=== PATIENT | male | born 1935 | race Caucasian/White ===

== ENCOUNTER → 2018-07-24 17:12 | Outpatient (CLI) | payer MEDICARE, BC, SELFPAY ==
[2018-07-24 18:09] LABS: Bacteria Urine None Seen; WBC Urine None Seen (0-5/HPF)
[2018-07-24 18:21] LABS: Appearance Urine UA CLEAR; Bilirubin Urine UA NEGATIVE (NEGATIVE); Color Urine UA YELLOW; Glucose Urine UA NEGATIVE (Normal); Ketones Urine UA NEGATIVE (NEGATIVE); Leukocyte Esterase Urine UA NEGATIVE (NEGATIVE); Nitrite Urine UA NEGATIVE (Negative); Occult Blood Urine UA 1+ (Negative); Protein Urine UA NEGATIVE (Negative); Urobilinogen Urine UA 0.2 E.U./dL (0.2); pH Urine UA 6.5 (4.5-8.0)
[2018-07-24 18:30] LABS: Culture Indicated Urine Cult Not Indicated; RBC Urine 5-10/HPF (0-5/HPF)
== END ==
PROVIDERS: Family Provider Family Medicine; PCP Family Medicine; Visit Provider Family Medicine
DX: R35.0 Frequency of micturition (principal)
CPT/HCPCS: 81001

== ENCOUNTER → 2018-10-01 15:48 | Outpatient (CLI) | payer MEDICARE, BC, SELFPAY ==
[2018-10-01 16:32] LABS: Alanine Aminotransferase 32 IU/L (21-72); Albumin 4.1 g/dL (3.5-5.0); Albumin Globulin Ratio 1.5 (1.0-2.8); Alkaline Phosphatase 75 U/L (38-126); Aspartate Aminotransferase 26 IU/L (17-59); Bilirubin Total 0.5 mg/dL (0.2-1.3); Blood Urea Nitrogen 27 mg/dL (9-20); Calcium 9.7 mg/dL (8.4-10.2); Carbon Dioxide 26 mmol/L (22-32); Chloride 104 mmol/L (98-107); Cholesterol 157 mg/dL (140-199); Estimated Glomerular Filt Rate > 60.0 mL/min (>60); Globulin 2.7 g/dL (1.7-4.1); Glucose 210 mg/dL (80-110); HDL Cholesterol 84 mg/dL (40-60); HEMOLYSIS < 15 (0-50); LDL Cholesterol Calculated 55 mg/dL (<100); Potassium 3.4 mmol/L (3.4-5.1); Sodium 140 mmol/L (137-145); Total Protein 6.8 g/dL (6.3-8.2); Triglycerides 89 mg/dL (35-150)
[2018-10-01 17:13] LABS: Prostate Specific Antigen Scrn < 0.064 ng/mL (0.1-4.0)
== END ==
PROVIDERS: PCP Family Medicine; Visit Provider Family Medicine
DX: I10 Essential (primary) hypertension (principal); E78.5 Hyperlipidemia, unspecified; Z85.46 Personal history of malignant neoplasm of prostate; Z12.5 Encounter for screening for malignant neoplasm of prostate
CPT/HCPCS: 36415; 80053; 80061; G0103

== ENCOUNTER → 2018-10-02 14:02 | Outpatient (CLI) | payer MEDICARE, BC, SELFPAY ==
[2018-10-02 15:30] LABS: Hemoglobin A1C% w Est Avg Glu 5.5 % (4.0-6.0)
== END ==
PROVIDERS: PCP Family Medicine; Visit Provider Family Medicine
DX: R73.09 Other abnormal glucose (principal)
CPT/HCPCS: 36415; 83036

== ENCOUNTER → 2018-10-08 08:19 | Outpatient (CLI) | payer MEDICARE, BC, SELFPAY | PROVIDERS: PCP Family Medicine; Visit Provider Family Medicine | DX: R73.09 Other abnormal glucose (principal) ==

== ENCOUNTER → 2018-10-09 07:59 | Outpatient (CLI) | payer MEDICARE, BC, SELFPAY ==
[2018-10-09 09:53] LABS: Glucose Fasting 84 mg/dL (80-110)
[2018-10-09 10:00] LABS: Glucose 1 Hour 154 mg/dL (70-170)
[2018-10-09 10:17] LABS: Glucose Tol Interpretation INTERPRETATION
[2018-10-09 10:51] LABS: Glucose 2 Hour 129 mg/dL (70-140)
[2018-10-13 14:57] LABS: Insulin Level Total 6.1 uIU/mL (2.0-19.6)
== END ==
PROVIDERS: PCP Family Medicine; Visit Provider Family Medicine
DX: R73.09 Other abnormal glucose (principal)
CPT/HCPCS: 36415; 82951; 82952; 83525

== ENCOUNTER → 2019-02-16 10:22 | Outpatient (CLI) | payer MEDICARE, BC, SELFPAY ==
--- NOTE | 2019-02-16 10:24 | DI.RAD.S_ITS ---
PROCEDURE: FL BARIUM SWALLOW W SPEECH INDICATIONS: Lump in throat TECHNIQUE: Examination was conducted in conjunction with speech pathology per standard protocol. In the lateral projection, filming was performed of the patient swallowing. AP projection filming may also be performed with patient swallowing. COMPARISON: None. FINDINGS: Function: The oral preparatory phase appears normal, with proper containment. The subsequent oral propulsive phase, pharyngeal phase, and esophageal phase of swallowing also appear normal with all proffered substances. No laryngotracheal penetration or aspiration. No pathologic vallecular pooling. Morphology: No cricopharyngeal bar is identified. No cervical esophageal webs. No Zenker's diverticulum. No strictures. IMPRESSION: No evidence of aspiration. Dictated by: Adam Worrell M.D. on 02/16/2019 at 12:25 Approved by: Adam Worrell M.D. on 02/16/2019 at 12:25
--- NOTE | 2019-02-17 15:47 | ST.SWALLOW ---
Care Team Visit Care Team Role Provider Type Cally Alejandre DO Attending Provider Physician Primary Care Provider Specialty: Family Practice Address: [address] [place] [address], [id number] Email: [email or web address] Modified Barium Swallow Study [employer] Modified Barium Swallow Study Start: 02/17/19 15:25 Freq: Status: Active Protocol: Document 02/17/19 15:25 TLC (Rec: 02/17/19 15:47 TLC [id number]) Modified Barium Swallow Study Total Time Visit Start Time 11:30 Visit Stop Time 12:00 Total Visit Minutes 30 Referral Reason for Referral Sensation of lump in throat when swallowing Patient Information Patient History Mr. Garcia reports new onset (1-2 months) of feeling a lump in his throat when he swallows. He denies odynophagia or dysphagia, but says he can feel his food/ drinks go around it. He denies reflux. Patient Positioning Position View Lat-A/P Imaging Lateral View Textures Administered Trials Presented Thin Liquid via Spoon Thin Liquid via Cup [place] Liquid via Spoon [place] Liquid via Cup Honey Liquid via Spoon Pudding Thick Liquid via Spoon Regular Textures Oral Phase Source: MBSIMP (TM) (C) Bolus Specific Scoring Grid Lip Closure No Impairment (WNL) Tongue Control During Bolus Hold No Impairment (WNL) Bolus Prep/Mastication No Impairment (WNL) Bolus Transport/Lingual Motion No Impairment (WNL) Oral Residue Mild Impairment Additional Oral Phase Observations Residue collection on oral structures with pudding and regular textures requiring multiple swallows to clear. Initiation of pharyngeal swallow was delayed to the level of the valleculae. Pharyngeal Phase Source: MBSIMP (TM) (C) Bolus Specific Scoring Grid Soft Palate Elevation Mild Impairment Tongue Base Strength/Range of Motion No Impairment (WNL) Laryngeal Elevation No Impairment (WNL) Anterior Hyoid Movement Mild Impairment Epiglottic Range of Motion No Impairment (WNL) Vallecular Residue Yes Laryngeal Vestibular Closure No Impairment (WNL) Upper Esophageal Sphincter Opening Moderate Impairment Residue in the Pyriform Sinuses Yes Esophageal Clearance Upright Position No Impairment (WNL) Additional Pharyngeal Phase Observations Complete laryngeal vestibular closure with out penetration or aspiration observed during the study. Anterior hyoid excurision was reduced and there was partial distension and duration of the pharyngoesophageal segment opening allowing for most of the bolus to pass, but resulting in collection of residue in the vallecula and pyriform sinuses which worsened as trials progressed. Dry swallows were somewhat effective in reducing amount of residue, but did not clear residue fully. Pharyngeal residue also observed along the aryepiglottic folds and posterior pharyngeal wall increasing risk of aspiration in between swallows. A/P View Textures Administered Trials Presented [place] Liquid via Spoon A/P View Observations Pharyngeal Contraction No Impairment (WNL) Esophageal Clearance Upright Position No Impairment (WNL) Clinical Impressions Findings Mild-mod oropharyngeal dysphagia characterized by residue both in the oral and pharyngeal phase increasing risk of aspiration. No identifiable cause of lump; however, sensation may be caused by vallecular residue. Further imaging may be warranted at the discretion of Dr. Alejandre to r/o other potential causes of lump sensation. In addition , narrowing of the pharyngoesophageal segment at the esophageal inlet warrants GI referral. Rehabilitation Potential Good Patient Appropriate for Therapy Yes: f/u x1 for training in compensatory strategies Recommendations Diet Liquids Order Thin Diet Order Regular Medication Recommendation As Tolerated Aspiration Precautions Recommended Precautions Upright at 90 Degrees Alternate Liquids/Solids Small Bites/Sips Treatment Plan Therapy Recommendations Outpatient Speech Therapy Compensatory Strategy Education Recommended Referrals Primary Care Physician GI Consult Compensatory Strategies Recommendations Mendelsonn Maneuver Small Bites and Sips Alternate Liquids/Solids Additional Compensatory Strategies Effortful Swallow, extra dry Recommended swallows
== END ==
PROVIDERS: PCP Family Medicine; Visit Provider Family Medicine
DX: R22.1 Localized swelling, mass and lump, neck (principal)
CPT/HCPCS: 74230; 92611

== ENCOUNTER → 2019-08-12 13:58 | Outpatient (CLI) | payer MEDICARE, BC, SELFPAY ==
[2019-08-12 14:52] LABS: Alanine Aminotransferase 20 IU/L (<50); Albumin 4.3 g/dL (3.5-5.0); Albumin Globulin Ratio 1.5 (1.0-2.8); Alkaline Phosphatase 95 U/L (38-126); Aspartate Aminotransferase 29 IU/L (17-59); BUN Creatinine Ratio 22.7 (6-22); Bilirubin Total 0.6 mg/dL (0.2-1.3); Blood Urea Nitrogen 25 mg/dL (9-20); Calcium 9.8 mg/dL (8.4-10.2); Carbon Dioxide 29 mmol/L (22-32); Chloride 103 mmol/L (98-107); Cholesterol 177 mg/dL (140-199); Estimated Glomerular Filt Rate > 60.0 mL/min (>60); Globulin 2.9 g/dL (1.7-4.1); Glucose 94 mg/dL (80-110); HDL Cholesterol 80 mg/dL (40-60); HEMOLYSIS < 15 (0-50); LDL Cholesterol Calculated 79 mg/dL (<100); Magnesium 2.2 mg/dL (1.6-2.3); Potassium 3.5 mmol/L (3.4-5.1); Sodium 141 mmol/L (137-145); Total Protein 7.2 g/dL (6.3-8.2); Triglycerides 88 mg/dL (35-150)
[2019-08-12 15:39] LABS: Creatinine Urine Random 74.1 mg/dL
[2019-08-12 15:42] LABS: Microalbumin Urine Random 2.6 mg/dL (0-1.6)
== END ==
PROVIDERS: PCP Family Medicine; Visit Provider Family Medicine
DX: I10 Essential (primary) hypertension (principal); N18.3 Chronic kidney disease, stage 3 (moderate); E78.5 Hyperlipidemia, unspecified; R00.1 Bradycardia, unspecified
CPT/HCPCS: 36415; 80053; 80061; 82043; 82570; 83735

== ENCOUNTER → 2019-09-06 15:32 | Outpatient (CLI) | payer MEDICARE, BC, SELFPAY ==
--- NOTE | 2019-09-06 15:34 | DI.ECHO.S_ITS ---
[facility] +---------+ : : [address] : : : : [id number] : : : : Phone: [phone] Echocardiogram Report + + :Name: JÚNIOR VARGHESE Study Date: 09/06/2019 Height: 66 in : :[facility] Weight: 175 lb : : Gender: Male BSA: 1.9 m2 : :: 1935 Age: 84 yrs BP: 172/94 mmHg: :Reason For Study: MURMUR : :Ordering Physician: Dyan : :[place] Performed By: Shaw Christianson : :Referring: DYAN SHAH : + + Interpretation Summary The study was technically difficult. The aortic valve is not optimally visualized but appears mildly thickened. The noncoronary cusp appears to especially be thickened/slightly calcified with some restriction in motion with no hemodynamically significant aortic stenosis. Left ventricular wall thickness is mildly increased. The left ventricular ejection fraction is normal. There are no obvious focal wall motion abnormalities noted but poor endocardial definition reduces the sensitivity for the detection of such. Diastolic parameters suggest a relaxation abnormality of the left ventricle, consistent with probable normal filling pressures. The right ventricle is normal in size and function. Pulmonary artery pressures cannot be estimated because of the lack of a measurable TR jet velocity. Both atria are of normal size -Overall this echo shows mild sclerotic changes of the aortic valve without aortic stenosis or any other valvular heart disease. -No prior echo for comparison. Procedure: A two-dimensional transthoracic echocardiogram with color flow and Doppler was performed. The study quality was technically adequate. There is no prior echocardiogram noted for this patient. The patient was in a bradycardic rhythm during the exam. The heart rate ranged between 49-66 bpm during the study. Left Ventricle: The left ventricle is normal in size. Left ventricular wall thickness is mildly increased. The ejection fraction is estimated to be 60- 65%. The left ventricular ejection fraction is normal. There are no obvious focal wall motion abnormalities noted but poor endocardial definition reduces the sensitivity for the detection of such. Diastolic parameters suggest a relaxation abnormality of the left ventricle, consistent with probable normal filling pressures. Right Ventricle: The right ventricle is normal in size and function. Atria: The left atrial size is normal. Right atrial size is normal. There is no Doppler evidence for an interatrial shunt. Mitral Valve: The mitral valve is normal in structure and function. There is mild mitral annular calcification. There is trace mitral regurgitation. Aortic Valve: The aortic valve is not well visualized. The aortic valve opens well. No aortic regurgitation is present. Tricuspid Valve: The tricuspid valve is normal in structure and function. There is trace tricuspid regurgitation. Pulmonary artery pressures cannot be estimated because of the lack of a measurable TR jet velocity. Pulmonic Valve: The pulmonic valve is not well visualized. There is trace pulmonic regurgitation. Great Vessels: The aortic root is normal size. The dimensions of the ascending aorta are normal. Atherosclerotic plaque noted in the aortic arch. The pulmonary artery is normal size. The inferior vena cava was not visualized. Pericardium/ Pleura There is no pericardial effusion. There is no pleural effusion. MMode/2D Measurements & Calculations LVIDd: 4.2 cm LVOT diam: 2.0 cm LVIDs: 2.4 cm Ao root diam: 3.3 cm FS: 43.2 % Aortic Jxn: 2.9 cm EPSS: 0.90 cm asc Aorta Diam: 3.0 cm IVSd: 1.4 cm LVPWd: 1.2 cm LV morrissey. diameter/BSA (cm/m^2): 2.2 LV sys. diameter/BSA (cm/m^2): 1.3 LA A2 area: 21.3 cm2 RA long axis: 5.7 cm LA A4 area: 19.2 cm2 RA area: 12.9 cm2 LA length (vol): 5.9 cm RA vol: 25.0 ml LA vol: 58.7 ml RA : 13.2 ml/m2 LA vol index: 31.1 ml/m2 TAPSE: 1.8 cm Doppler Measurements & Calculations Ao V2 max: 166.5 cm/sec LVOT Max Jacob: 131.8 cm/sec Ao V2 mean: 106.7 cm/sec LV V1 max P.0 mmHg Ao max P.1 mmHg LV V1 VTI: 29.9 cm Ao mean P.5 mmHg NIKITA(I,D): 2.4 cm2 Ao V2 VTI: 37.9 cm NIKITA(V,D): 2.5 cm2 sev ratio: 0.79 NIKITA indexed to BSA (cm^2/m^2): 1.3 MV E max jacob: 45.7 cm/sec PA V2 max: 87.1 cm/sec MV A max jacob: 83.1 cm/sec PA V2 mean: 59.2 cm/sec MV E/A: 0.55 PA mean P.6 mmHg Med Peak E' Jacob: 6.6 cm/sec PA Accel Time: 0.11 sec E/E' med: 6.9 Lat Peak E' Jacob: 9.5 cm/sec E/E' lat: 4.8 E/e' average: 5.9 MV dec time: 0.42 sec SV(LVOT): 92.5 ml Electronically signed by: Juvencio Lopez M.D. on Reading Physician:09/07/2019 10:51 AM
== END ==
PROVIDERS: Family Provider Internal Medicine Cardiovascular Disease; PCP Family Medicine; Visit Provider Family Medicine
DX: R01.1 Cardiac murmur, unspecified (principal); I70.0 Atherosclerosis of aorta
CPT/HCPCS: 93306

== ENCOUNTER → 2019-09-29 15:25 | Outpatient (CLI) | payer MEDICARE, BC, SELFPAY ==
[2019-09-29 16:59] LABS: Blood Urea Nitrogen 24 mg/dL (9-20); Calcium 9.9 mg/dL (8.4-10.2); Carbon Dioxide 27 mmol/L (22-32); Chloride 104 mmol/L (98-107); Creatine Kinase 91 U/L (55-170); Estimated Glomerular Filt Rate > 60.0 mL/min (>60); Glucose 94 mg/dL (80-110); HEMOLYSIS < 15 (0-50); Potassium 3.7 mmol/L (3.4-5.1); Sodium 140 mmol/L (137-145)
== END ==
PROVIDERS: Family Provider Internal Medicine Cardiovascular Disease; PCP Family Medicine; Visit Provider Family Medicine
DX: I10 Essential (primary) hypertension (principal); M79.10 Myalgia, unspecified site
CPT/HCPCS: 36415; 80048; 82550

== ENCOUNTER → 2020-03-29 11:00 | Outpatient (CLI) | payer MEDICARE, BC, SELFPAY ==
--- NOTE | 2020-03-29 11:02 | DI.US.S_ITS ---
PROCEDURE: US CAROTID DOPPLER BI INDICATIONS: TIA TECHNIQUE: Color and pulse Doppler interrogation was performed of both carotid systems, with image documentation and velocity measurements. COMPARISON: None. FINDINGS: Stenosis calculations are based on SRU (Society of Radiologists in Ultrasound) criteria. The flow velocities and the arterial waveforms are normal within both carotid arterial systems. Atherosclerotic plaque is seen on both sides. The estimated degree of internal carotid artery stenosis is less than 50%. Antegrade flow is confirmed within both vertebral arteries. IMPRESSION: No hemodynamically significant stenosis is seen. Atherosclerotic plaque is noted bilaterally. Dictated by: Clint White M.D. on 03/29/2020 at 11:43 Approved by: Clint White M.D. on 03/29/2020 at 11:43
== END ==
PROVIDERS: Family Provider Internal Medicine Cardiovascular Disease; PCP Family Medicine; Referring Provider Registered Nurse Diabetes Educator; Visit Provider Registered Nurse Diabetes Educator
DX: H53.8 Other visual disturbances (principal); I65.23 Occlusion and stenosis of bilateral carotid arteries
CPT/HCPCS: 93880

== ENCOUNTER → 2020-03-31 12:22 | Outpatient (CLI) | payer MEDICARE, BC, SELFPAY ==
[2020-03-31 13:20] LABS: Alanine Aminotransferase 23 IU/L (<50); Albumin 4.2 g/dL (3.5-5.0); Albumin Globulin Ratio 1.4 (1.0-2.8); Alkaline Phosphatase 78 U/L (38-126); Aspartate Aminotransferase 33 IU/L (17-59); BUN Creatinine Ratio 27.8 (6-22); Bilirubin Total 0.6 mg/dL (0.2-1.3); Blood Urea Nitrogen 27 mg/dL (9-20); Calcium 10.3 mg/dL (8.4-10.2); Carbon Dioxide 26 mmol/L (22-32); Chloride 107 mmol/L (98-107); Estimated Glomerular Filt Rate > 60.0 mL/min (>60); Globulin 2.9 g/dL (1.7-4.1); Glucose 97 mg/dL (80-110); HEMOLYSIS < 15 (0-50); Magnesium 2.3 mg/dL (1.6-2.3); Potassium 3.7 mmol/L (3.4-5.1); Sodium 139 mmol/L (137-145); Total Protein 7.1 g/dL (6.3-8.2)
[2020-03-31 13:21] LABS: Hemoglobin A1C% w Est Avg Glu 5.7 % (4.0-6.0)
== END ==
PROVIDERS: Family Provider Internal Medicine Cardiovascular Disease; PCP Family Medicine; Referring Provider Family Medicine; Visit Provider Family Medicine
DX: I10 Essential (primary) hypertension (principal); N18.3 Chronic kidney disease, stage 3 (moderate)
CPT/HCPCS: 36415; 80053; 83036; 83735

== ENCOUNTER → 2020-07-03 07:06 | Outpatient (CLI) | payer MEDICARE, BC, SELFPAY ==
--- NOTE | 2020-07-03 07:08 | DI.US.S_ITS ---
PROCEDURE: US ABD AORTA ANEURYSM SCREEN INDICATIONS: AAA TECHNIQUE: Real time scanning was performed of the aorta and iliac arteries, with image documentation. COMPARISON: None. FINDINGS: Aorta: Proximal aortic diameter measures 2.3 cm. Mid-aorta measures 2.4 cm. Distal aortic diameter is mildly aneurysmal with a maximal axial dimension of 4.0 cm and a transverse dimension of 4.7 cm with a craniocaudad fusiform length of 5.0 cm. Eccentric chronic thrombus within the lumen narrows the flowing diameter of the distal aorta to 2.1 cm. The degree of stenosis is not hemodynamically significant. . Iliac arteries: Right common iliac artery measures 1.1 cm. Left common iliac artery measures 1.0 cm. IMPRESSION: Fusiform distal abdominal aortic aneurysm with maximal transverse dimension of 4.0 x 4.7 cm. Elsewhere no aneurysm is found. Follow-up in 1 year is recommended. Dictated by: Bryant Higgins M.D. on 07/03/2020 at 8:22 Approved by: Bryant Higgins M.D. on 07/03/2020 at 8:25
== END ==
PROVIDERS: Family Provider Internal Medicine Cardiovascular Disease; PCP Family Medicine; Referring Provider Family Medicine; Visit Provider Family Medicine
DX: I71.4 Abdominal aortic aneurysm, without rupture (principal)
CPT/HCPCS: 76706

== ENCOUNTER → 2020-07-26 14:24 | Outpatient (CLI) | payer MEDICARE, BC, SELFPAY ==
[2020-07-26 15:36] LABS: BUN Creatinine Ratio 26.7 (6-22); Blood Urea Nitrogen 24 mg/dL (9-20); Calcium 9.6 mg/dL (8.4-10.2); Carbon Dioxide 30 mmol/L (22-32); Chloride 105 mmol/L (98-107); Estimated Glomerular Filt Rate > 60.0 mL/min (>60); Glucose 89 mg/dL (80-110); HEMOLYSIS < 15 (0-50); Potassium 3.7 mmol/L (3.4-5.1); Sodium 138 mmol/L (137-145)
== END ==
PROVIDERS: Family Provider Internal Medicine Cardiovascular Disease; PCP Family Medicine; Referring Provider Family Medicine; Visit Provider Family Medicine
DX: E83.52 Hypercalcemia (principal)
CPT/HCPCS: 36415; 80048

== ENCOUNTER → 2020-11-20 08:30 | Outpatient (CLI) | payer MEDICARE, BC, SELFPAY ==
--- NOTE | 2020-11-20 08:31 | DI.RAD.S_ITS ---
PROCEDURE: XR SHOULDER RT MIN 2V INDICATIONS: shoulder pain TECHNIQUE: 3 views of the shoulder were acquired. COMPARISON: None. 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 No prior trauma found.. No suspicious bony lesions. Visualized ribs appear intact. Soft tissues: No suspicious soft tissue calcifications. 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 There is near [id number] articulation at the glenohumeral joint. Dictated by: Bryant Higgins M.D. on 11/20/2020 at 9:13 Approved by: Bryant Higgins M.D. on 11/20/2020 at 9:14
[2020-11-20 10:41] LABS: BUN Creatinine Ratio 20.9 (6-22); Blood Urea Nitrogen 19 mg/dL (9-20); Calcium 10.1 mg/dL (8.4-10.2); Carbon Dioxide 30 mmol/L (22-32); Chloride 102 mmol/L (98-107); Estimated Glomerular Filt Rate > 60.0 mL/min (>60); Glucose 131 mg/dL (80-110); HEMOLYSIS < 15 (0-50); Potassium 3.5 mmol/L (3.4-5.1); Sodium 139 mmol/L (137-145)
[2020-11-20 11:14] LABS: Prostate Specific Antigen Scrn < 0.064 ng/mL (0.1-4.0)
== END ==
PROVIDERS: Family Provider Internal Medicine Cardiovascular Disease; PCP Family Medicine; Referring Provider Family Medicine; Visit Provider Family Medicine
DX: G47.33 Obstructive sleep apnea (adult) (pediatric) (principal); Z12.5 Encounter for screening for malignant neoplasm of prostate; I10 Essential (primary) hypertension; M25.511 Pain in right shoulder
CPT/HCPCS: 36415; 73030; 80048; G0103

== ENCOUNTER → 2021-01-15 08:24 | Outpatient (CLI) | payer MEDICARE, BC, SELFPAY ==
[2021-01-15 12:14] LABS: COVID19 -Nasal RAPID Negative (Negative)
== END ==
PROVIDERS: Family Provider Internal Medicine Cardiovascular Disease; PCP Family Medicine; Visit Provider Family Medicine Sleep Medicine
DX: Z20.822 Contact with and (suspected) exposure to COVID-19 (principal); G47.33 Obstructive sleep apnea (adult) (pediatric); G47.19 Other hypersomnia
CPT/HCPCS: 87635; 95810

== ENCOUNTER → 2021-05-14 09:29 | Outpatient (CLI) | payer MEDICARE, BC, SELFPAY ==
--- NOTE | 2021-05-14 09:30 | DI.US.S_ITS ---
PROCEDURE: US RETRO PERITONEAL LIMITED INDICATIONS: FOLLOW-UP AAA TECHNIQUE: Real time scanning was performed of the aorta and iliac arteries, with image documentation. COMPARISON: [facility], , US ABD AORTA ANEURYSM SCREEN, 07/03/2020, 7:35. FINDINGS: Aorta: Proximal aortic not well seen Mid-aorta measures 2.2 cm. Distal aortic diameter is 4.4 x 5.3 cm. Iliac arteries: Right common iliac artery measures 1.1 cm. Left common iliac artery measures 1.1 cm. IMPRESSION: Slight interval increase in size of distal abdominal aortic aneurysm measuring up to 5.3 cm in maximal diameter. 3 to six-month follow-up ultrasound is recommended and consider surgical/endovascular treatment. Dictated by: Praveen Kang [facility] Interpreted: Olivier Lozano MD on 05/14/2021 at 10:29 Approved by: Olivier Lozano M.D. on 05/14/2021 at 16:49
== END ==
PROVIDERS: Family Provider Internal Medicine Cardiovascular Disease; PCP Family Medicine; Referring Provider Family Medicine; Visit Provider Family Medicine
DX: I71.4 Abdominal aortic aneurysm, without rupture (principal)
CPT/HCPCS: 76775

== ENCOUNTER → 2022-01-04 07:49 | Outpatient (CLI) | payer MEDICARE, BC, SELFPAY ==
[2022-01-04 08:10] LABS: Add Manual Diff / Slide Review NO; Basophils Absolute Auto 100 /uL (0-100); Eosinophils Absolute Auto 100 /uL (0-450); Eosinophils Percent Auto 1.1 % (2-4); Hematocrit 41.7 % (41-53); Hemoglobin 14.5 g/dL (13.5-17.5); Lymphocytes Absolute Auto 1300 /uL (1100-4500); Lymphocytes Percent Auto 16.4 % (25-40); Mean Corpuscular HGB Conc 34.8 % (30-36); Mean Corpuscular Hemoglobin 31.7 PG (26-34); Mean Corpuscular Volume 91.1 fL (80-100); Monocytes Absolute Auto 600 /uL (0-900); Monocytes Percent Auto 7.8 % (3-14); Neutrophils Absolute Auto 5900 /uL (1500-7000); Neutrophils Percent Auto 73.7 % (50-75); Platelet Count 184 X10^3/uL (150-400); Red Blood Cell Count 4.58 X10^6/uL (4.5-5.9); Red Cell Distribution Width 14.3 % (11.6-14.8); White Blood Cell Count 8.1 X10^3/uL (4.5-11.0)
[2022-01-04 08:27] LABS: Alanine Aminotransferase 21 IU/L (<50); Albumin 4.1 g/dL (3.5-5.0); Albumin Globulin Ratio 1.6 (1.0-2.8); Alkaline Phosphatase 91 U/L (38-126); Aspartate Aminotransferase 29 IU/L (17-59); Bilirubin Total 0.9 mg/dL (0.2-1.3); Blood Urea Nitrogen 20 mg/dL (9-20); Calcium 9.4 mg/dL (8.4-10.2); Carbon Dioxide 27 mmol/L (22-32); Chloride 107 mmol/L (98-107); Cholesterol 162 mg/dL (140-199); Estimated Glomerular Filt Rate > 60 mL/min (>60); Globulin 2.6 g/dL (1.7-4.1); Glucose 97 mg/dL (80-110); HDL Cholesterol 91 mg/dL (40-60); HEMOLYSIS < 15 (0-50); LDL Cholesterol Calculated 59 mg/dL (<100); Potassium 3.6 mmol/L (3.4-5.1); Sodium 140 mmol/L (137-145); Total Protein 6.7 g/dL (6.3-8.2); Triglycerides 60 mg/dL (35-150)
[2022-01-04 09:02] LABS: Prostate Specific Antigen Scrn < 0.064 ng/mL (0.1-4.0)
[2022-01-04 10:03] LABS: Creatinine Urine Random 84.1 mg/dL
[2022-01-04 10:04] LABS: Microalbumi Creatinin Ratio Ur 14.2 ug/mg CR (<30); Microalbumin Urine Random 1.2 mg/dL (0-1.6)
== END ==
PROVIDERS: Family Provider Internal Medicine Cardiovascular Disease; PCP Family Medicine; Referring Provider Family Medicine; Visit Provider Family Medicine
DX: E78.5 Hyperlipidemia, unspecified (principal); Z12.5 Encounter for screening for malignant neoplasm of prostate; E83.52 Hypercalcemia; G47.19 Other hypersomnia; I10 Essential (primary) hypertension; N18.30 Chronic kidney disease, stage 3 unspecified; N20.0 Calculus of kidney; Z85.46 Personal history of malignant neoplasm of prostate
CPT/HCPCS: 36415; 80053; 80061; 82043; 82570; 85025; G0103

== ENCOUNTER 2022-06-15 03:51 | Emergency (ER) | payer MEDICARE, BC, SELFPAY ==
[2022-06-15] VITALS (10 sets, daily range): BP systolic 145–206; BP diastolic 65–94; PULSE 44–64; RESP 18; TEMP 35.5; O2SAT 96–98
--- NOTE | 2022-06-15 03:57 | ED_ITS ---
HPI - Abdominal Pain General Chief Complaint: Abdominal Pain Stated Complaint: Lt. lower abd. pain Time Seen by Provider: 06/15/22 03:57 History of Present Illness HPI narrative: 87-year-old male nonsmoker with history of hypertension, known AAA, and known left groin hernia presents with a chief complaint of about 24 hours of worsening left groin pain and increased size of his hernia. He is typically able to reduce the hernia but today it bulged out and is significantly larger. He is having no fever or chills and denies any inability to move his bowels, he is not vomiting. He denies dysuria, frequency or urgency. Related Data Home Medications Medication Instructions Recorded Confirmed loratadine 10 mg tablet (Claritin) 10 mg PO QDAYP ##0 05/06/12 01/03/22 ASPIRIN (Aspir-Low) 81 mg PO QDAY ##0 05/07/12 01/03/22 FOLIC ACID/VIT A/VIT B1/VIT 1 tab PO QDAY ##0 07/13/12 01/03/22 (#MULTIVITAMIN) Previous Rx's Medication Instructions Recorded atorvastatin 40 mg tablet 40 mg PO DAILY #90 tabs 01/03/22 irbesartan 75 mg tablet 75 mg PO DAILY #90 tabs 01/03/22 potassium chloride 10 mEq 10 meq PO DAILY #90 caps 01/03/22 capsule,extended release tamsulosin 0.4 mg capsule 0.4 mg PO DAILY #90 caps 01/03/22 triamterene 37.5 See Rx Instructions .Route 01/03/22 mg-hydrochlorothiazide 25 mg tablet .COMPLEX #90 tabs hydralazine 10 mg tablet 30 mg PO TID #810 tabs 03/22/22 Allergies Allergy/AdvReac Type Severity Reaction Status Date / Time SAIDA Inhibitors Allergy Mild COUGH Verified 01/03/22 15:04 [SAIDA INHIBITORS] amlodipine [AMLODIPINE] Allergy Mild LE EDMA, Verified 01/03/22 15:04 RASH escitalopram [ESCITALOPRAM] Allergy Mild DIZZY, Verified 01/03/22 15:04 CONFUSED, MUSCLE RIGIDITY hydrochlorothiazide AdvReac Intermediate mild Verified 01/03/22 15:04 [HYDROCHLOROTHIAZIDE] hypercalcemia triamterene [TRIAMTERENE] AdvReac Intermediate elevated Verified 01/03/22 15:04 creatinine diltiazem [DILTIAZEM] AdvReac Mild BRADYCARDIA, Verified 01/03/22 15:04 NEAR SYNCOPE terazosin [TERAZOSIN] AdvReac Mild ORTHOSTASIS Verified 01/03/22 15:04 venlafaxine [VENLAFAXINE] AdvReac Mild CRAMPING, Verified 01/03/22 15:04 GI S/S Review of Systems Review of Systems Narrative: GENERAL: Denies chills, fatigue, malaise, fever, sweats. HEENT: Denies sinus pain, ear pain, sore throat, difficulty swallowing, dizziness. RESPIRATORY: Denies dyspnea, cough, wheezing, hemoptysis, sputum. CARDIOVASCULAR: Denies chest pain, palpitations, orthopnea, edema, GASTROINTESTINAL: See HPI : See HPI MUSCULOSKELETAL: denies weakness, joint pain, or bony pain SKIN: Denies rash, skin lesions, or other NEUROLOGIC: Denies weakness, headache, numbness, change in speech, confusion, seizures, incoordination. PSYCHIATRIC: No concerning psychosocial issues. 12 point review of systems is negative except for those stated above Patient History Medical History Abdominal aortic aneurysm (AAA) without rupture (2004) Anxiety Asthma (~1947) Blurring of visual image Cardiac arrhythmia Cataract (~2012) Chicken pox (~1943) Colon polyps (~1996) Excessive daytime sleepiness Foot pain GI bleeding (~2013) History of excision of epidermal inclusion cyst (05/09/14) History of prostate cancer History of urinary incontinence (~1999) Hypertension Kidney stones (~1985) Lumbar spine pain Measles (~194) Mumps (~194) Obstructive sleep apnea, adult (~2011) Periodic limb movement disorder (PLMD) Vision disorder Surgical History Anesthesia Lump of skin of back (~2014) Prostate cancer (~1998) Status post appendectomy Status post routine circumcision Status post tonsillectomy and adenoidectomy Family History Brother Cancer Brother Age: 82 Heart disease Hypertension Hyperlipidemia Brother Age: 80 Hypertension Hyperlipidemia Child Age: 60 Hypertension Child Age: 59 Hypertension Father Heart disease Mother Age: 102 Cancer Hypertension Hyperlipidemia Osteoporosis Social History (Reviewed 06/16/22 @ 22:04 by DOT [place] Smoking Status: Former smoker Smoking Status: Former smoker Exam Narrative Exam Narrative: GENERAL: [87] year old patient appears stated age. Well-developed patient, in mild distress. HEAD: Atraumatic. Normocephalic. EYES: Pupils equal round and reactive. Extraocular motions intact. No scleral icterus. No injection or drainage. ENT: Nose without bleeding, purulent drainage. Throat without erythema, tonsillar hypertrophy or exudate. Airway patent. NECK: Trachea midline. Non tender CARDIOVASCULAR: Regular rate and rhythm without murmurs, gallops, or rubs. RESPIRATORY: Clear to auscultation. Breath sounds equal bilaterally. No wheezes, rales, or rhonchi. GASTROINTESTINAL: Abdomen soft, non-tender, nondistended. Bowel sounds present in all 4 quadrants no tenderness outside of left inguinal region : Moderate R inguinal hernia noted, soft and minimally tender. No overlying erythema, warmth or induration. EXTREMITIES: No edema or joint tenderness. BACK: Nontender without deformity or crepitance. No flank tenderness. NEURO: AOx3. SKIN: No rash or erythema of visible areas Initial Vital Signs Initial Vital Signs: Vital Signs Temperature 96 F L 06/15/22 04:00 Pulse Rate 64 06/15/22 04:00 Respiratory Rate 18 06/15/22 04:00 Blood Pressure 206/94 H 06/15/22 04:00 Pulse Oximetry 98 06/15/22 04:00 Oxygen Delivery Method 06/15/22 04:00 Course Course Course Narrative: patient given Versed and tolerated attempts at reduction quite well. After attempts patient felt much better, and it continued to be out, but is smaller and with significantly improved symptoms Orders Ordered: Discontinued Medications Bisacodyl (Bisacodyl 10 Mg Supp) 10 mg CA NOW ONE Stop: 06/15/22 06:48 Last Admin: 06/15/22 06:54 Dose: 10 mg Documented By: RAN Sodium Chloride (Normal Saline 0.9%) 500 mls @ 1,000 mls/hr IV BOLUS ONE Stop: 06/15/22 04:33 Last Infusion: 06/15/22 05:19 Dose: 0 mls/hr Documented By: Admin: 06/15/22 04:27 Dose: 1,000 mls/hr Documented By: NICANOR Midazolam HCl (Midazolam 2 Mg/2 Ml Vial) 1 mg IV NOW ONE Stop: 06/15/22 04:24 Last Admin: 06/15/22 04:28 Dose: 1 mg Documented By: NICANOR Consultations Consultation #1: Discussed with on-call general surgeon who has reviewed imaging, labs as well as history and physical. After this discussion it is determined the patient does not need hospitalization or surgical intervention at this time, she recommends stool softeners (MiraLax twice daily) and close follow-up with her office to discuss options moving forward. Vital Signs Vital signs: Vital Signs - 8 hr 06/15/22 04:00 06/15/22 04:07 06/15/22 04:30 Temperature 96 F L Pulse Rate 64 57 L 51 L Respiratory Rate 18 Blood Pressure 206/94 H Pulse Oximetry 98 97 97 Oxygen Delivery Method Room Air 06/15/22 04:31 06/15/22 04:31 06/15/22 05:00 Temperature Pulse Rate 54 L Respiratory Rate Blood Pressure 171/81 H 183/81 H Pulse Oximetry 98 Oxygen Delivery Method 06/15/22 05:00 06/15/22 05:30 06/15/22 05:31 Temperature Pulse Rate 45 L 44 L Respiratory Rate Blood Pressure 177/77 H Pulse Oximetry 98 97 Oxygen Delivery Method 06/15/22 05:31 06/15/22 06:00 06/15/22 06:00 Temperature Pulse Rate 46 L 44 L Respiratory Rate Blood Pressure 178/81 H Pulse Oximetry 97 97 Oxygen Delivery Method MDM - Abdominal Pain Lab Data Result diagrams: 06/15/22 04:00 06/15/22 04:00 Labs: Lab Results 06/15/22 06/15/22 06/15/22 Range/Units 04:00 04:00 04:00 WBC 7.3 (4.5-11.0) X10^3/uL RBC 4.67 (4.5-5.9) X10^6/uL Hgb 14.6 (13.5-17.5) g/dL Hct 42.8 (41-53) % MCV 91.6 (80-100) fL MCH 31.2 (26-34) PG MCHC 34.1 (30-36) % RDW 13.8 (11.6-14.8) % Plt Count 173 (150-400) X10^3/uL Neut % (Auto) 63.8 (50-75) % Lymph % (Auto) 22.5 L (25-40) % [place] % (Auto) 9.9 (3-14) % Eos % (Auto) 3.1 (2-4) % Baso % (Auto) 0.7 (0-2) % Neut # (Auto) 4700 (2860-3524) /uL Lymph # (Auto) 1600 (9751-2218) /uL [place] # (Auto) 700 (0-900) /uL Eos # (Auto) 200 (0-450) /uL Baso # (Auto) 100 (0-100) /uL PT (10.1-12.7) SECONDS INR (0.9-1.3) Sodium 140 (137-145) mmol/L Potassium 3.5 (3.4-5.1) mmol/L Chloride 106 (98-107) mmol/L Carbon Dioxide 26 (22-32) mmol/L BUN 18 (9-20) mg/dL Creatinine 0.97 (0.66-1.25) mg/dL Estimated GFR > 60 (>60) mL/min BUN/Creatinine Ratio 18.6 (6-22) Glucose 99 (80-110) mg/dL Lactate 1.2 (0.7-2.1) mmol/L Calcium 9.1 (8.4-10.2) mg/dL Total Bilirubin 0.7 (0.2-1.3) mg/dL AST 27 (17-59) IU/L ALT 22 (<50) IU/L Alkaline Phosphatase 79 (38-126) U/L Total Protein 7.0 (6.3-8.2) g/dL Albumin 3.9 (3.5-5.0) g/dL Globulin 3.1 (1.7-4.1) g/dL Albumin/Globulin Ratio 1.3 (1.0-2.8) 06/15/22 Range/Units 04:00 WBC (4.5-11.0) X10^3/uL RBC (4.5-5.9) X10^6/uL Hgb (13.5-17.5) g/dL Hct (41-53) % MCV (80-100) fL MCH (26-34) PG MCHC (30-36) % RDW (11.6-14.8) % Plt Count (150-400) X10^3/uL Neut % (Auto) (50-75) % Lymph % (Auto) (25-40) % [place] % (Auto) (3-14) % Eos % (Auto) (2-4) % Baso % (Auto) (0-2) % Neut # (Auto) (8921-1237) /uL Lymph # (Auto) (2630-8209) /uL [place] # (Auto) (0-900) /uL Eos # (Auto) (0-450) /uL Baso # (Auto) (0-100) /uL PT 12.3 (10.1-12.7) SECONDS INR 1.1 (0.9-1.3) Sodium (137-145) mmol/L Potassium (3.4-5.1) mmol/L Chloride (98-107) mmol/L Carbon Dioxide (22-32) mmol/L BUN (9-20) mg/dL Creatinine (0.66-1.25) mg/dL Estimated GFR (>60) mL/min BUN/Creatinine Ratio (6-22) Glucose (80-110) mg/dL Lactate (0.7-2.1) mmol/L Calcium (8.4-10.2) mg/dL Total Bilirubin (0.2-1.3) mg/dL AST (17-59) IU/L ALT (<50) IU/L Alkaline Phosphatase (38-126) U/L Total Protein (6.3-8.2) g/dL Albumin (3.5-5.0) g/dL Globulin (1.7-4.1) g/dL Albumin/Globulin Ratio (1.0-2.8) Imaging Data CT scan - abdomen/pelvis: Radiologist's Impression: [address] [address] [address] Scan Report Signed Patient: Olman Garcia MR#: [id number] : 1935 Acct:[id number] Age/Sex: 87 / M Date of Service: 06/15/22 Loc: ED Accession Number: [id number] ?? Procedure: CT angio chest abdomen pelvis Ordering Provider: Dionisio Page D.O. PROCEDURE:? CT ANGIO CHEST ABDOMEN PELVIS ? INDICATIONS:? LLQ pain, known 5.3cm AAA, also inguinal hernia ? TECHNIQUE:? Precontrast 5 mm thick sections acquired from the lung apices to the iliac crests.? After the administration of intravenous contrast, 2.5 mm thick sections again acquired from the lung apices to the iliac crests.? Maximum intensity projection (MIP) oblique sagittal and coronal reformats were then acquired.? For radiation dose reduction, the following was used:? automated exposure control.? ? COMPARISON:? [facility], , ABD AORTA ANEURYSM SCREEN, 07/03/2020, 7:35.? [facility], RETRO PERITONEAL LIMITED, 05/14/2021, 10:05.? [facility], HERNIA INGUINAL, 04/25/2022, 13:15. ? FINDINGS:? Image quality:? Excellent.? ? AORTA:? The thoracic aorta demonstrates atherosclerotic calcification and irregularity, yet without aneurysm or dissection. ? Within the abdominal aorta, there is a known fusiform aneurysm seen distally, which measures 5.3 cm AP.? Relatively prominent mural thrombus can be seen.? No periaortic inflammatory changes are seen. ? CHEST:? Lungs and pleura:? No acute airspace opacities.? No pleural effusions or pneumothorax.? Central and peripheral airways are patent and normal in caliber.? ? Mediastinum:? Heart size is mildly enlarged.? No pericardial effusion.? No med iastinal or hilar adenopathy by size criteria.? Central pulmonary arteries are normal in size.? Esophagus is normal in caliber.? No hiatal hernias.? ? Bones and chest wall:? No axillary adenopathy by size criteria.? Thyroid gland demonstrates no significant abnormality.? No suspicious bony lesions.? No vertebral body compression fractures.? ? ? ABDOMEN:? Vasculature:? Celiac trunk and mesenteric arteries are patent.? Renal arteries are also patent.? ? Solid organs:? Liver is normal in size and enhancement.? Gallbladder wall is not thickened.? Biliary system is non dilated.? Pancreas enhances normally.? Spleen is normal in size and enhancement.? No adrenal nodules.? ? Both kidneys are normal in size and enhancement, without hydronephrosis.? Numerous simple appearing bilateral renal cysts are seen.? A few cysts demonstrate mild wall calcification or layering calcification within them.? Along the posterior aspect of the right kidney, there is a focal lesion seen that measures 60 Hounsfield units and 12 mm. ? Peritoneum and bowel:? No free fluid or air.? Bowel loops are normal in caliber and wall thickness.? Colonic diverticulosis is seen, without findings of active diverticulitis. ? Nodes and vessels:? No retroperitoneal or mesenteric adenopathy by size criteria.? Inferior vena cava is normal in morphology.? ? Miscellaneous:? No ventral hernias.? ? ? PELVIS:? Genitourinary:? Bladder wall thickness is normal.? Prostate seed implants are seen. ? Miscellaneous:? There is a large left inguinal hernia seen, which contains fat and nondilated distal colon.? There is a fat containing right inguinal hernia.? No inguinal adenopathy.? No ventral hernias.? ? Bones:? No suspicious bony lesions.? No vertebral body compression fractures.? Mild dextroconvex scoliotic curvature is seen.? Degenerative changes are seen throughout, which are worst involving the lower lumbar spine.? ? ? IMPRESSION:? There is a 5.3 cm aneurysm seen involving the distal abdominal aorta.? No periaortic inflammatory changes are pain.? This aneurysm has grown compared to the 2020 ultrasound, when it measured 4 cm AP. ? There is mild cardiomegaly. ? Bilateral inguinal hernias are seen, including a large hernia on the left containing fat and nondilated distal colon.? ? Numerous bilateral renal cysts are seen, including multiple simple cysts.? Several cysts demonstrate mural calcification or layering calcification. ? Along the posterior aspect of the right kidney, there is an exophytic lesion measuring 60 Hounsfield units and 12 mm, which cannot be defined as a simple cyst.? When clinically appropriate, please consider a dedicated renal mass protocol CT (without and with contrast) for further evaluation. ? ? ? Incidental note is made of: Dextroconvex scoliotic curvature Diverticulosis, without active diverticulitis Prostate seed implants ? Note: No significant discrepancy from the preliminary report. ? Dictated by: Clint White M.D. on 06/15/2022 at 7:26 ? ? Approved by: Clint White M.D. on 06/15/2022 at 7:35 ? MDM Narrative Medical decision making narrative: Patient presents with left groin pain and known hernia which is larger today. It is reducible, there is no sign of inflammation. Patient's symptoms improve after attempts at reduction. Reviewed with surgery who will follow him as an outpatient. AAA is imaged and no signs of it leaking or any inflammatory change, there is mention of it having grown since 04/20/2020 ultrasound, however dimensions are unchanged from the ultrasound obtained last month. He has been given extensive return precautions, questions [facility] Departure Patient Disposition: Home Clinical Impression: Hernia, inguinal, left, Abdominal aortic aneurysm (AAA) without rupture Instructions: DI for Groin Hernia Activity Restrictions/Additional Instructions: *You have been diagnosed with [ abdominal pain due left inguinal hernia. As we discussed the hernia does contain bowel but there are no surgical indications today. Per my discussion with the on-call surgeon she would prefer that you take medications to soften your stool and follow-up with her in the office to discuss surgical options moving forward] *What to do: *Take over the counter medications as directed: 1. Miralax twice daily until you follow up 2. Colace - softens your stool 3. Dulcolax suppository - stimulates your bowels *Follow up with your primary care provider in 2-3 days, call for appoi ntment *Return to ER if you should have any new, worsening pain, persistent vomiting, fever, shaking chills or other bothersome symptoms *Drink plenty of water and eat foods high in fiber *Stay as active as you can as this helps move your bowels as well Prescriptions: No Action loratadine [Claritin] 10 MG tablet 10 mg PO QDAYP Qty: 0 ASPIRIN (Aspir-Low) 81 mg PO QDAY Qty: 0 FOLIC ACID/VIT A/VIT B1/VIT (#MULTIVITAMIN) 1 tab PO QDAY Qty: 0 hydralazine 10 mg tablet 30 mg PO TID Qty: 810 0RF atorvastatin 40 mg tablet 40 mg PO DAILY Qty: 90 3RF irbesartan 75 mg tablet 75 mg PO DAILY Qty: 90 3RF potassium chloride 10 mEq capsule, extended release 10 meq PO DAILY Qty: 90 3RF tamsulosin 0.4 mg capsule 0.4 mg PO DAILY Qty: 90 3RF triamterene-hydrochlorothiazid 37.5-25 mg tablet See Rx Instructions .ROUTE .COMPLEX Qty: 90 3RF Dose Instruction: TAKE 1 TABLET BY MOUTH EVERY DAY Rx Instructions: TAKE 1 TABLET BY MOUTH EVERY DAY Referrals: Brandy Stephen MD [Primary Care Provider] - Bruna Massey MD [Physician] - Visit Report Forms: Patient Portal/API
--- NOTE | 2022-06-15 04:22 | DI.CT.S_ITS ---
PROCEDURE: CT ANGIO CHEST ABDOMEN PELVIS INDICATIONS: LLQ pain, known 5.3cm AAA, also inguinal hernia TECHNIQUE: Precontrast 5 mm thick sections acquired from the lung apices to the iliac crests. After the administration of intravenous contrast, 2.5 mm thick sections again acquired from the lung apices to the iliac crests. Maximum intensity projection (MIP) oblique sagittal and coronal reformats were then acquired. For radiation dose reduction, the following was used: automated exposure control. COMPARISON: [facility], , [place] ABD AORTA ANEURYSM SCREEN, 07/03/2020, 7:35. [facility], [place] RETRO PERITONEAL LIMITED, 05/14/2021, 10:05. [facility], [place] HERNIA INGUINAL, 04/25/2022, 13:15. FINDINGS: Image quality: Excellent. AORTA: The thoracic aorta demonstrates atherosclerotic calcification and irregularity, yet without aneurysm or dissection. Within the abdominal aorta, there is a known fusiform aneurysm seen distally, which measures 5.3 cm AP. Relatively prominent mural thrombus can be seen. No periaortic inflammatory changes are seen. CHEST: Lungs and pleura: No acute airspace opacities. No pleural effusions or pneumothorax. Central and peripheral airways are patent and normal in caliber. Mediastinum: Heart size is mildly enlarged. No pericardial effusion. No mediastinal or hilar adenopathy by size criteria. Central pulmonary arteries are normal in size. Esophagus is normal in caliber. No hiatal hernias. Bones and chest wall: No axillary adenopathy by size criteria. Thyroid gland demonstrates no significant abnormality. No suspicious bony lesions. No vertebral body compression fractures. ABDOMEN: Vasculature: Celiac trunk and mesenteric arteries are patent. Renal arteries are also patent. Solid organs: Liver is normal in size and enhancement. Gallbladder wall is not thickened. Biliary system is non dilated. Pancreas enhances normally. Spleen is normal in size and enhancement. No adrenal nodules. Both kidneys are normal in size and enhancement, without hydronephrosis. Numerous simple appearing bilateral renal cysts are seen. A few cysts demonstrate mild wall calcification or layering calcification within them. Along the posterior aspect of the right kidney, there is a focal lesion seen that measures 60 Hounsfield units and 12 mm. Peritoneum and bowel: No free fluid or air. Bowel loops are normal in caliber and wall thickness. Colonic diverticulosis is seen, without findings of active diverticulitis. Nodes and vessels: No retroperitoneal or mesenteric adenopathy by size criteria. Inferior vena cava is normal in morphology. Miscellaneous: No ventral hernias. PELVIS: Genitourinary: Bladder wall thickness is normal. Prostate seed implants are seen. Miscellaneous: There is a large left inguinal hernia seen, which contains fat and nondilated distal colon. There is a fat containing right inguinal hernia. No inguinal adenopathy. No ventral hernias. Bones: No suspicious bony lesions. No vertebral body compression fractures. Mild dextroconvex scoliotic curvature is seen. Degenerative changes are seen throughout, which are worst involving the lower lumbar spine. IMPRESSION: There is a 5.3 cm aneurysm seen involving the distal abdominal aorta. No periaortic inflammatory changes are pain. This aneurysm has grown compared to the 2020 ultrasound, when it measured 4 cm AP. There is mild cardiomegaly. Bilateral inguinal hernias are seen, including a large hernia on the left containing fat and nondilated distal colon. Numerous bilateral renal cysts are seen, including multiple simple cysts. Several cysts demonstrate mural calcification or layering calcification. Along the posterior aspect of the right kidney, there is an exophytic lesion measuring 60 Hounsfield units and 12 mm, which cannot be defined as a simple cyst. When clinically appropriate, please consider a dedicated renal mass protocol CT (without and with contrast) for further evaluation. Incidental note is made of: Dextroconvex scoliotic curvature Diverticulosis, without active diverticulitis Prostate seed implants Note: No significant discrepancy from the preliminary report. Dictated by: Clint White M.D. on 06/15/2022 at 7:26 Approved by: Clint White M.D. on 06/15/2022 at 7:35
[2022-06-15] MEDS: SODIUM CHLORIDE 0.9% 500 ML 1000 ML IV (04:27)
[2022-06-15] MEDS: MIDAZOLAM 2 MG/2 ML VIAL 1 MG IV (04:28)
[2022-06-15 04:49] LABS: Add Manual Diff / Slide Review NO; Basophils Absolute Auto 100 /uL (0-100); Basophils Percent Auto 0.7 % (0-2); Eosinophils Absolute Auto 200 /uL (0-450); Eosinophils Percent Auto 3.1 % (2-4); Hematocrit 42.8 % (41-53); Hemoglobin 14.6 g/dL (13.5-17.5); Lymphocytes Absolute Auto 1600 /uL (1100-4500); Lymphocytes Percent Auto 22.5 % (25-40); Mean Corpuscular HGB Conc 34.1 % (30-36); Mean Corpuscular Hemoglobin 31.2 PG (26-34); Mean Corpuscular Volume 91.6 fL (80-100); Monocytes Absolute Auto 700 /uL (0-900); Monocytes Percent Auto 9.9 % (3-14); Neutrophils Absolute Auto 4700 /uL (1500-7000); Neutrophils Percent Auto 63.8 % (50-75); Platelet Count 173 X10^3/uL (150-400); Red Blood Cell Count 4.67 X10^6/uL (4.5-5.9); Red Cell Distribution Width 13.8 % (11.6-14.8); White Blood Cell Count 7.3 X10^3/uL (4.5-11.0)
[2022-06-15 04:50] LABS: INR 1.1 (0.9-1.3); Prothrombin Time 12.3 SECONDS (10.1-12.7)
[2022-06-15 04:57] LABS: Alanine Aminotransferase 22 IU/L (<50); Albumin 3.9 g/dL (3.5-5.0); Albumin Globulin Ratio 1.3 (1.0-2.8); Alkaline Phosphatase 79 U/L (38-126); Aspartate Aminotransferase 27 IU/L (17-59); BUN Creatinine Ratio 18.6 (6-22); Bilirubin Total 0.7 mg/dL (0.2-1.3); Blood Urea Nitrogen 18 mg/dL (9-20); Calcium 9.1 mg/dL (8.4-10.2); Carbon Dioxide 26 mmol/L (22-32); Chloride 106 mmol/L (98-107); Estimated Glomerular Filt Rate > 60 mL/min (>60); Globulin 3.1 g/dL (1.7-4.1); Glucose 99 mg/dL (80-110); HEMOLYSIS 15 (0-50); Lactate (Lactic Acid) 1.2 mmol/L (0.7-2.1); Potassium 3.5 mmol/L (3.4-5.1); Sodium 140 mmol/L (137-145)
[2022-06-15] MEDS: BISACODYL 10 MG SUPP PR (06:54)
== END 2022-06-15 07:12 | disposition home or self-care (01) ==
PROVIDERS: Emergency Provider Emergency Medicine; Family Provider Internal Medicine Cardiovascular Disease; PCP Family Medicine
DX: K40.90 Unilateral inguinal hernia, without obstruction or gangrene, not specified as recurrent (principal); I71.40 Abdominal aortic aneurysm, without rupture, unspecified
CPT/HCPCS: 36415; 71275; 74174; 80053; 83605; 85025; 85610; 96361; 96374; 99284; J2250; Q9967

== ENCOUNTER 2023-02-03 07:06 | Emergency (ER) | payer MEDICARE, BC, SELFPAY ==
[2023-02-03] VITALS (13 sets, daily range): BP systolic 171–197; BP diastolic 81–90; PULSE 47–67; RESP 18; TEMP 36.6; O2SAT 95–100; BMI 29.0
--- NOTE | 2023-02-03 07:46 | DI.CT.S_ITS ---
PROCEDURE: CT ANGIO ABDOMEN PELVIS INDICATIONS: Abdominal pain/left inguinal pain/history of aortic aneurism TECHNIQUE: Non-contrast 3 mm thick sections acquired from the diaphragm to the symphysis. After the administration of intravenous contrast, 2.5 mm thick sections acquired from the diaphragm to the symphysis during the arterial and venous phases. 10 mm maximum intensity projection (MIP) reformats were acquired of the arterial phase images. For radiation dose reduction, the following was used: automated exposure control. COMPARISON: [facility], CT, CT ANGIO CHEST ABDOMEN PELVIS, 06/15/2022, 5:25. FINDINGS: Image quality: Excellent. Vascular structures: Interval increase interval increase in the size of an infrarenal abdominal aortic aneurysm with moderately large thrombus, previously measuring 5.0 x 5.3 cm on prior image 98/4 in currently measuring 5.1 x 5.6 cm on current image 36/4. At the level of the main renal arteries, the aorta measures 2.8 x 2.9 cm. There are 2 bilateral renal arteries. The lowest renal artery is a accessory left renal artery. At the level of this vessel, the aorta measures 3.2 x 3.2 cm. There is a 4 cm neck between this renal artery and the large aneurysm. The celiac and SMA and renal arteries are patent. The KAREEM appears to be occluded proximally. The left common iliac artery measures 1.3 cm. The right common iliac is ectatic with moderate thrombus focally measuring 1.8 cm. Extravascular structures: Lung bases are clear. Mild cardiomegaly. Moderate to severe coronary artery calcifications. Liver is normal in size and enhancement. Gallbladder is unremarkable . Biliary system is non dilated. Pancreas enhances normally. Spleen is normal in size and enhancement. No adrenal nodules. There are multiple bilateral sizable renal cysts. On image 88/4 a left renal lesion measuring 5.2 x 4.1 cm which may potentially represent a complex partially cystic and partially solid renal cell carcinoma. However, it may simply represent a multi cystic lesion with hemorrhage or debris in a focal area. Non-opacified bowel loops demonstrate normal wall thickness and caliber. Sigmoid diverticulosis. No evidence of diverticulitis. No free fluid or air. No retroperitoneal or mesenteric adenopathy. No ventral hernias. There is a large left inguinal hernia containing colon. There is a small right inguinal hernia containing fat. Prostate implant seeds. No suspicious bony abnormalities. No vertebral body compression fractures. Severe lumbar degenerative change. Severe canal stenosis at L3-L4. IMPRESSION: 1. The known infrarenal abdominal aortic aneurysm has increased in size, and is surgical in size, measuring 5.1 x 5.6 cm. At the level of the lowest renal artery, a small accessory left renal artery, there is mild aneurysmal dilatation of the aorta, measuring 3.2 x 3.2 cm. 2. 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 3. There is a large left renal lesion measuring 5.2 x 4.1 cm which may potentially represent a complex, predominantly cystic and partially solid renal cell carcinoma. Alternatively, it may represent a multiloculated cyst with debris or hemorrhage in 1 of the loculations. 4. Extensive lumbar degenerative change with severe canal stenosis at L3-L4. Comment: Recommend referral to vascular surgery for consideration of aortic aneurysm repair. Also, recommend multiphase MRI or multiphase CT to further evaluate the left renal lesion. Patient may potentially require referral to urology, as well. Dictated by: Denny Schilling M.D. on 02/03/2023 at 8:25 Approved by: Denny Schilling M.D. on 02/03/2023 at 8:40
--- NOTE | 2023-02-03 07:49 | ED_ITS ---
HPI - GI Bleed General Chief complaint: GI Bleed Stated complaint: no BM T-7 passing blood Time Seen by Provider: 02/03/23 07:35 Source: patient Mode of arrival: Ambulatory History of Present Illness HPI Narrative: Patient here for left inguinal pain and swelling. With left scrotal swelling. Patient has known history of left inguinal hernia. Also known history of abdominal aneurysm measuring 5.3 cm. Patient denies abdominal pain or back pain. Last night he had a few episodes of bright red blood per rectum. No syncope. No back pain. No chest pain. No numbness tingling or weakness. Patient is not on any blood thinners. Patient seen here June 15, 2022 for same complaint. General surgeon at the time did not recommend urgent hernia surgery. However on follow up he was recommended to have the surgery. In the past 2 weeks he states the left inguinal crease and left scrotal swelling has not gone down. A usually slides in and out. Denies any black stools. No fever. No urinary complaints. Related Data Home Medications Medication Instructions Recorded Confirmed loratadine 10 mg tablet (Claritin) 10 mg PO QDAYP ##0 05/06/12 02/04/23 aspirin 81 mg tablet,delayed 81 mg PO DAILY 10/02/22 02/04/23 release (Adult Aspirin Regimen) cholecalciferol (vitamin D3) 25 25 mcg PO DAILY 10/02/22 02/04/23 mcg (1,000 unit) capsule hydralazine 50 mg tablet 50 mg PO TID 10/02/22 02/04/23 multivitamin 1 tab PO DAILY 10/02/22 02/04/23 Previous Rx's Medication Instructions Recorded irbesartan 75 mg tablet 75 mg PO DAILY #90 tabs 10/02/22 triamterene 37.5 1 tab PO DAILY #90 tabs 10/09/22 mg-hydrochlorothiazide 25 mg tablet atorvastatin 40 mg tablet See Rx Instructions .Route 01/31/23 .COMPLEX #90 tabs tamsulosin 0.4 mg capsule 0.4 mg PO DAILY #90 caps 01/31/23 hydrocodone 5 mg-acetaminophen 325 1 tab PO Q8H PRN pain #10 tabs 02/04/23 mg tablet potassium chloride 10 mEq 10 meq PO DAILY #90 caps 02/04/23 capsule,extended release Allergies Allergy/AdvReac Type Severity Reaction Status Date / Time SAIDA Inhibitors Allergy Mild COUGH Verified 02/04/23 11:44 [SAIDA INHIBITORS] amlodipine [AMLODIPINE] Allergy Mild LE EDMA, Verified 02/04/23 11:44 RASH escitalopram [ESCITALOPRAM] Allergy Mild DIZZY, Verified 02/04/23 11:44 CONFUSED, MUSCLE RIGIDITY hydrochlorothiazide AdvReac Intermediate mild Verified 02/04/23 11:44 [HYDROCHLOROTHIAZIDE] hypercalcemia triamterene [TRIAMTERENE] AdvReac Intermediate elevated Verified 02/04/23 11:44 creatinine diltiazem [DILTIAZEM] AdvReac Mild BRADYCARDIA, Verified 02/04/23 11:44 NEAR SYNCOPE terazosin [TERAZOSIN] AdvReac Mild ORTHOSTASIS Verified 02/04/23 11:44 venlafaxine [VENLAFAXINE] AdvReac Mild CRAMPING, Verified 02/04/23 11:44 GI S/S Review of Systems Review of Systems Narrative: GENERAL: negative chills, fatigue, malaise, fever, sweats. HEENT: negative sinus pain, ear pain, sore throat RESPIRATORY: negative dyspnea, cough CARDIOVASCULAR: negative chest pain, palpitations GASTROINTESTINAL: negative nausea, vomiting, abdominal pain : negative dysuria, frequency, hematuria, positive left scrotal swelling MUSCULOSKELETAL: negative muscle or bony pain SKIN: negative rash, skin lesions NEUROLOGIC: negative weakness, numbness ROS Unobtainable: All systems reviewed & are unremarkable except as noted in HPI and below Patient History Medical History (Updated 02/03/23 @ 15:01 by Karen Wetzel RN) Abdominal aortic aneurysm (AAA) without rupture (2004) Anxiety Asthma (~1947) Blurring of visual image Cardiac arrhythmia Cataract (~2012) Chicken pox (~1943) Colon polyps (~1996) Excessive daytime sleepiness Foot pain GI bleeding (~2013) History of excision of epidermal inclusion cyst (05/09/14) History of prostate cancer History of urinary incontinence (~1999) Hypertension Kidney stones (~1985) Lumbar spine pain Measles (~194) Mumps (~194) Obstructive sleep apnea, adult (~2011) Periodic limb movement disorder (PLMD) Vision disorder Surgical History Anesthesia Lump of skin of back (~2014) Prostate cancer (~1998) Status post appendectomy Status post routine circumcision Status post tonsillectomy and adenoidectomy Family History Brother Cancer Brother Age: 82 Heart disease Hypertension Hyperlipidemia Brother Age: 80 Hypertension Hyperlipidemia Child Age: 60 Hypertension Child Age: 59 Hypertension Father Heart disease Mother Age: 102 Cancer Hypertension Hyperlipidemia Osteoporosis Social History household members: none Smoking Status: Former smoker Tobacco: How many years used: 25 alcohol intake: current substance use type: does not use Smoking Status: Former smoker alcohol intake frequency: a few times a month Alcohol type: wine Substance Use Type: does not use Exam Narrative Exam Narrative: GENERAL: in no distress, not toxic not dyspneic HEAD: Normocephalic. EYES: Pupils equal round ENT: Mucous membranes moist. NECK: Trachea midline. CARDIOVASCULAR: Regular rate and rhythm without murmurs, strong bilateral carotid and femoral pulses. RESPIRATORY: Clear to auscultation. Breath sounds equal bilaterally. No wheezes, rales, or rhonchi. GASTROINTESTINAL: Abdomen soft, non-tender, abdomen soft nontender. No peritoneal signs. No pain out of portion to exam. No palpable pulsatile mass. There is a large left inguinal and scrotal hernia. It does not reducible. No overlying ecchymosis or cyanosis. EXTREMITIES: No gross deformities. BACK: No flank tenderness. NEURO: AOx4. SKIN: Warm and dry PSYCH: Not anxious, is cooperative Initial Vital Signs Initial Vital Signs: Vital Signs Temperature 97.8 F 02/03/23 07:20 Pulse Rate 66 02/03/23 07:20 Respiratory Rate 18 02/03/23 07:20 Blood Pressure 189/90 H 02/03/23 07:20 Pulse Oximetry 99 02/03/23 07:20 Oxygen Delivery Method Room Air 02/03/23 07:20 Course Orders Ordered: Discontinued Medications Sodium Chloride (Normal Saline 0.9%) 500 mls @ 1,000 mls/hr IV BOLUS ONE Stop: 02/03/23 08:15 Last Infusion: 02/03/23 08:57 Dose: 0 mls/hr Documented By: Admin: 02/03/23 08:16 Dose: 1,000 mls/hr Documented By: NGUYỄN Ondansetron HCl (Ondansetron 4 Mg/2 Ml Inj) 4 mg IV NOW PRN PRN Reason: Nausea And Vomiting Ondansetron HCl (Ondansetron 4 Mg Odt) 4 mg SL NOW PRN PRN Reason: Nausea And Vomiting Pantoprazole Sodium (Pantoprazole 40 Mg Vial) 80 mg IV NOW ONE Stop: 02/03/23 07:27 Last Admin: 02/03/23 07:45 Dose: Not Given Documented By: ADAM Vital Signs Vital signs: Vital Signs - 8 hr 02/03/23 07:20 02/03/23 07:21 02/03/23 07:30 Temperature 97.8 F Pulse Rate 66 67 61 Respiratory Rate 18 Blood Pressure 189/90 H Pulse Oximetry 99 96 98 Oxygen Delivery Method Room Air 02/03/23 08:04 02/03/23 08:25 02/03/23 08:25 Temperature Pulse Rate 55 L 54 L Respiratory Rate Blood Pressure 180/86 H Pulse Oximetry 97 98 Oxygen Delivery Method 02/03/23 08:30 02/03/23 08:30 Temperature Pulse Rate 47 L Respiratory Rate Blood Pressure 171/81 H Pulse Oximetry 96 Oxygen Delivery Method MDM - GI Bleed Lab Data 02/03/23 07:30 02/03/23 07:30 Labs: Lab Results 02/03/23 02/03/23 02/03/23 Range/Units 07:30 07:30 07:30 WBC 7.8 (4.5-11.0) X10^3/uL RBC 4.67 (4.5-5.9) X10^6/uL Hgb 14.7 (13.5-17.5) g/dL Hct 42.8 (41-53) % MCV 91.6 (80-100) fL MCH 31.6 (26-34) PG MCHC 34.5 (30-36) % RDW 13.7 (11.6-14.8) % Plt Count 188 (150-400) X10^3/uL Neut % (Auto) 64.8 (50-75) % Lymph % (Auto) 19.1 L (25-40) % [place] % (Auto) 8.2 (3-14) % Eos % (Auto) 7.0 H (2-4) % Baso % (Auto) 0.9 (0-2) % Neut # (Auto) 5000 (0124-4126) /uL Lymph # (Auto) 1500 (9368-9684) /uL [place] # (Auto) 600 (0-900) /uL Eos # (Auto) 500 H (0-450) /uL Baso # (Auto) 100 (0-100) /uL PT 14.3 H (10.1-12.7) SECONDS INR 1.2 (0.9-1.3) APTT 33 (26-36) SECONDS Sodium 137 (137-145) mmol/L Potassium 3.2 L (3.4-5.1) mmol/L Chloride 105 (98-107) mmol/L Carbon Dioxide 26 (22-32) mmol/L BUN 20 (9-20) mg/dL Creatinine 0.98 (0.66-1.25) mg/dL Estimated GFR > 60 (>60) mL/min BUN/Creatinine Ratio 20.4 (6-22) Glucose 98 (80-110) mg/dL Calcium 9.1 (8.4-10.2) mg/dL Total Bilirubin 0.9 (0.2-1.3) mg/dL AST 25 (17-59) IU/L ALT 21 (<50) IU/L Alkaline Phosphatase 86 (38-126) U/L Total Protein 7.0 (6.3-8.2) g/dL Albumin 4.0 (3.5-5.0) g/dL Globulin 3.0 (1.7-4.1) g/dL Albumin/Globulin Ratio 1.3 (1.0-2.8) Blood Type Antibody Screen 02/03/23 Range/Units 07:30 WBC (4.5-11.0) X10^3/uL RBC (4.5-5.9) X10^6/uL Hgb (13.5-17.5) g/dL Hct (41-53) % MCV (80-100) fL MCH (26-34) PG MCHC (30-36) % RDW (11.6-14.8) % Plt Count (150-400) X10^3/uL Neut % (Auto) (50-75) % Lymph % (Auto) (25-40) % [place] % (Auto) (3-14) % Eos % (Auto) (2-4) % Baso % (Auto) (0-2) % Neut # (Auto) (6923-6465) /uL Lymph # (Auto) (6674-1974) /uL [place] # (Auto) (0-900) /uL Eos # (Auto) (0-450) /uL Baso # (Auto) (0-100) /uL PT (10.1-12.7) SECONDS INR (0.9-1.3) APTT (26-36) SECONDS Sodium (137-145) mmol/L Potassium (3.4-5.1) mmol/L Chloride (98-107) mmol/L Carbon Dioxide (22-32) mmol/L BUN (9-20) mg/dL Creatinine (0.66-1.25) mg/dL Estimated GFR (>60) mL/min BUN/Creatinine Ratio (6-22) Glucose (80-110) mg/dL Calcium (8.4-10.2) mg/dL Total Bilirubin (0.2-1.3) mg/dL AST (17-59) IU/L ALT (<50) IU/L Alkaline Phosphatase (38-126) U/L Total Protein (6.3-8.2) g/dL Albumin (3.5-5.0) g/dL Globulin (1.7-4.1) g/dL Albumin/Globulin Ratio (1.0-2.8) Blood Type AB Positive Antibody Screen Negative Imaging Data CT scan - abdomen/pelvis: Radiologist's Impression: [place] [address] CT Scan Report Signed Patient: Olman Garcia MR#: [id number] : 1935 Acct:[id number] Age/Sex: 87 / M Date of Service: 02/03/23 Loc: ED Accession Number: [id number] ?? Procedure: CT angio abdomen pelvis Ordering Provider: Russ Smith MD PROCEDURE:? CT ANGIO ABDOMEN PELVIS ? INDICATIONS:? Abdominal pain/left inguinal pain/history of aortic aneurism ? TECHNIQUE:? Non-contrast 3 mm thick sections acquired from the diaphragm to the symphysis.? After the administration of intravenous contrast, 2.5 mm thick sections acquired from the diaphragm to the symphysis during the arterial and venous phases. 10 mm maximum intensity projection (MIP) reformats were acquired of the arterial phase images.? For radiation dose reduction, the following was used:? automated exposure control.? ? COMPARISON:? [facility], CT, CT ANGIO CHEST ABDOMEN PELVIS, 06/15/2022, 5:25. ? FINDINGS:? Image quality:? Excellent.? ? Vascular structures:? Interval increase interval increase in the size of an infrarenal abdominal aortic aneurysm with moderately large thrombus, previously measuring 5.0 x 5.3 cm on prior image 98/4 in currently measuring 5.1 x 5.6 cm on current image 36/4.? At the level of the main renal arteries, the aorta measures 2.8 x 2.9 cm.? There are 2 bilateral renal arteries.? The lowest renal artery is a accessory left renal artery.? At the level of this vessel, the aorta measures 3.2 x 3.2 cm. There is a 4 cm neck between this renal artery and the large aneurysm.? The celiac and SMA and renal arteries are patent.? The KAREEM appears to be occluded proximally.? The left common iliac artery measures 1.3 cm.? The right common iliac is ectatic with moderate thrombus focally measuring 1.8 cm.? ? Extravascular structures:? Lung bases are clear.? Mild cardiomegaly.? Moderate to severe coronary artery calcifications.? Liver is normal in size and enhancement.? Gallbladder is unremarkable .? Biliary system is non dilated.? Pancreas enhances normally.? Spleen is normal in size and enhancement.? No adrenal nodules.? There are multiple bilateral sizable renal cysts.? On image 88/4 a left renal lesion measuring 5.2 x 4.1 cm which may potentially represent a complex partially cystic and partially solid renal cell carcinoma.? However, it may simply represent a multi cystic lesion with hemor rhage or debris in a focal area.? Non-opacified bowel loops demonstrate normal wall thickness and caliber.? Sigmoid diverticulosis.? No evidence of diverticulitis.? No free fluid or air.? No retroperitoneal or mesenteric adenopathy.? No ventral hernias.? There is a large left inguinal hernia containing colon.? There is a small right inguinal hernia containing fat. ?Prostate implant seeds.? No suspicious bony abnormalities.? No vertebral body compression fractures.? Severe lumbar degenerative change.? Severe canal stenosis at L3-L4. ? ? IMPRESSION:? ? 1. The known infrarenal abdominal aortic aneurysm has increased in size, and is surgical in size, measuring 5.1 x 5.6 cm.? At the level of the lowest renal artery, a small accessory left renal artery, there is mild aneurysmal dilatation of the aorta, measuring 3.2 x 3.2 cm. ? 2. 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 ? 3. There is a large left renal lesion measuring 5.2 x 4.1 cm which may potentially represent a complex, predominantly cystic and partially solid renal cell carcinoma.? Alternatively, it may represent a multiloculated cyst with debris or hemorrhage in 1 of the loculations. ? 4. Extensive lumbar degenerative change with severe canal stenosis at L3-L4. ? Comment:? Recommend referral to vascular surgery for consideration of aortic aneurysm repair.? Also, recommend multiphase MRI or multiphase CT to further evaluate the left renal lesion.? Patient may potentially require referral to urology, as well. ? Dictated by: Denny Schilling M.D. on 02/03/2023 at 8:25 ? ? Approved by: Denny Schilling M.D. on 02/03/2023 at 8:40 ? MDM Narrative Medical decision making narrative: Patient here for left inguinal pain and swelling. With left scrotal swelling. Patient has known history of left inguinal hernia. Also known history of abdominal aneurysm measuring 5.3 cm. Patient denies abdominal pain or back pain. Last night he had a few episodes of bright red blood per rectum. No syncope. No back pain. No chest pain. No numbness tingling or weakness. Patient is not on any blood thinners. Patient seen here June 15, 2022 for same complaint. General surgeon at the time did not recommend urgent hernia surgery. However on follow up he was recommended to have the surgery. In the past 2 weeks he states the left inguinal crease and left scrotal swelling has not gone down. A usually slides in and out. Denies any black stools. No fever. No urinary complaints. After history and exam CBC CMP PT PTT CT angiogram abdomen pelvis normal saline MDM CC: Left inguinal swelling Complicating co-morbidities: History of aortic aneurysm without rupture or repair Data collected from: Patient Medical records reviewed: ER visit here June 15, 2022 Differential considered: Includes but not limited to incarcerated hernia strangulated hernia aortic aneurysm rupture Exam documented above, pertinent findings include: Nontender abdomen. There is palpable large nonreducible left inguinal hernia Lab Test results independently reviewed as above. Pertinent findings: CBC shows WBC 7.8 hemoglobin 14.7 hematocrit 42.8 platelets 188 INR 1.2 sodium 137 potassium 3.2 BUN 20 creatinine 0.98 GFR greater than 60 Imaging studies independently reviewed: CT angiogram abdomen pelvis left renal mass, abdominal aneurysm is 5.1 by 5.6 cm. There is a large 5.2 x 4.1 cm left renal lesion. Consultations: Dr. Gore, general surgeon, bedside with patient at 9:00 a.m.. He was able to reduce 50%. At this time patient can be discharged home and his office will call him today to schedule for appointment 3:00 a.m. tomorrow afternoon for elective left inguinal hernia repair. Patient is satisfied with this plan. Treatments: Normal saline Re-evaluations: 9:49 a.m. Patient states left inguinal hernia does feel better after Dr. Gore did partial reduction. I did review new findings on left kidney possible cancer, I will reach out to Oncology today for follow up. Also I wanted to update his vascular surgeon dr scott, in [facility]. Patient agrees with this plan Discussion: 9:00 a.m., Dr. Gore at bedside, general surgeon, to reduce inguinal hernia 10:00 a.m.. Spoke with vascular surgeon, alisson karimi for pt's provider, dr galvan, he is in surgery now, I reviewed physical exam as well as CT scan imaging from today, patient does not need urgent vascular surgery or aneurysm repair. Patient may proceed with inguinal hernia repair. Patient can follow up outpatient monitoring with his surgeon/vascular surgeon 10:[address] Ashford, oncology, CT imaging incidental finding on the kidney. He will need outpatient follow-up. No need for further laboratory studies or imaging now. Patient may proceed with his hernia repair. Discussion: Appropriate for discharge home. Exam and laboratory studies otherwise reassuring. I have reviewed with vascular surgeon as well as general surgeon. Patient is comfortable with this plan. The hernia was partially reduced and plans for surgery are in place with general surgeon. Not toxic at discharge. Return precautions reviewed with him. He desires discharge home. Diagnosis: Left inguinal hernia Discharge Plan Departure Patient Disposition: Home Clinical Impression: Inguinal hernia, left Instructions: DI for Groin Hernia, DI for Hernia Repair Activity Restrictions/Additional Instructions: Return if worse if any questions or concerns. Dr. Gore is scheduling you for surgery tomorrow afternoon. You should receive a call from the office. Do not eat or drink anything after midnight tonight. Through today, please do keep well hydrated. Return if any increased pain or if any increased rectal bleeding. Return if any dizziness or abdominal pain or if any vomiting. On CT scan imaging there was a growth seen on your left kidney. You will need to follow up with your family doctor for further imaging MRI and detailed CT scan. This may be a cancerous lesion. Oncology referral has been given to you. Please make this call today. We did contact your vascular surgery office regarding CT scan results today of your aneurism and at this time it is stable. Prescriptions: No Action loratadine [Claritin] 10 MG tablet 10 mg PO QDAYP Qty: 0 triamterene-hydrochlorothiazid 37.5-25 mg tablet 1 tab PO DAILY Qty: 90 1RF atorvastatin 40 mg tablet See Rx Instructions .ROUTE .COMPLEX Qty: 90 0RF Dose Instruction: TAKE 1 TABLET BY MOUTH DAILY Rx Instructions: TAKE 1 TABLET BY MOUTH DAILY tamsulosin 0.4 mg capsule 0.4 mg PO DAILY Qty: 90 3RF potassium chloride 10 mEq capsule, extended release 10 meq PO DAILY Qty: 90 3RF aspirin [Adult Aspirin Regimen] 81 mg tablet,delayed release (DR/EC) 81 mg PO DAILY hydralazine 50 mg tablet 50 mg PO TID cholecalciferol (vitamin D3) 25 mcg (1,000 unit) capsule 25 mcg PO DAILY multivitamin Tablet 1 tab PO DAILY irbesartan 75 mg tablet 75 mg PO DAILY Qty: 90 3RF hydrocodone-acetaminophen 5-325 mg tablet 1 tab PO Q8H PRN (Reason: pain) Qty: 10 0RF Referrals: Trever Gore MD [Physician] - Oswaldo Ashford MD [Physician] - Tanesha Hair DO [Primary Care Provider] - Stand Alone Forms: Patient Portal/API
[2023-02-03 07:50] LABS: Add Manual Diff / Slide Review NO; Basophils Absolute Auto 100 /uL (0-100); Basophils Percent Auto 0.9 % (0-2); Eosinophils Absolute Auto 500 /uL (0-450); Hematocrit 42.8 % (41-53); Hemoglobin 14.7 g/dL (13.5-17.5); Lymphocytes Absolute Auto 1500 /uL (1100-4500); Lymphocytes Percent Auto 19.1 % (25-40); Mean Corpuscular HGB Conc 34.5 % (30-36); Mean Corpuscular Hemoglobin 31.6 PG (26-34); Mean Corpuscular Volume 91.6 fL (80-100); Monocytes Absolute Auto 600 /uL (0-900); Monocytes Percent Auto 8.2 % (3-14); Neutrophils Absolute Auto 5000 /uL (1500-7000); Neutrophils Percent Auto 64.8 % (50-75); Platelet Count 188 X10^3/uL (150-400); Red Blood Cell Count 4.67 X10^6/uL (4.5-5.9); Red Cell Distribution Width 13.7 % (11.6-14.8); White Blood Cell Count 7.8 X10^3/uL (4.5-11.0)
[2023-02-03 07:56] LABS: INR 1.2 (0.9-1.3); Prothrombin Time 14.3 SECONDS (10.1-12.7)
[2023-02-03 07:59] LABS: PTT Partial Thromboplastin Tim 33 SECONDS (26-36)
[2023-02-03 08:01] LABS: Alanine Aminotransferase 21 IU/L (<50); Albumin Globulin Ratio 1.3 (1.0-2.8); Alkaline Phosphatase 86 U/L (38-126); Aspartate Aminotransferase 25 IU/L (17-59); BUN Creatinine Ratio 20.4 (6-22); Bilirubin Total 0.9 mg/dL (0.2-1.3); Blood Urea Nitrogen 20 mg/dL (9-20); Calcium 9.1 mg/dL (8.4-10.2); Carbon Dioxide 26 mmol/L (22-32); Chloride 105 mmol/L (98-107); Estimated Glomerular Filt Rate > 60 mL/min (>60); Glucose 98 mg/dL (80-110); HEMOLYSIS 20 (0-50); Potassium 3.2 mmol/L (3.4-5.1); Sodium 137 mmol/L (137-145)
[2023-02-03] MEDS: SODIUM CHLORIDE 0.9% 500 ML 1000 ML IV (08:16)
--- NOTE | 2023-02-03 09:29 | PM.CN ---
History of Present Illness Consult details Date Patient Seen: 02/03/23 Time Patient Seen: 09:29 Chief complaint: no BM T-7 passing blood Narrative: Olman Garcia is a an 87-year-old man who presented to the emergency department with an incarcerated left inguinal hernia. He has noticed a decrease in the size of his bowel movements recently as well as some rectal bleeding. A CT showed a loop of colon in the left inguinal hernia. I saw him last year and we discussed elective hernia repair but he never followed up for the actual surgery. Meds Home Medications and Allergies Home Medications Medication Instructions Recorded Confirmed Type loratadine 10 mg tablet (Claritin) 10 mg PO QDAYP ##0 05/06/12 01/29/23 History potassium chloride 10 mEq 10 meq PO DAILY #90 caps 01/03/22 01/29/23 Rx capsule,extended release aspirin 81 mg tablet,delayed 81 mg PO DAILY 10/02/22 01/29/23 History release (Adult Aspirin Regimen) cholecalciferol (vitamin D3) 25 25 mcg PO DAILY 10/02/22 01/29/23 History mcg (1,000 unit) capsule hydralazine 50 mg tablet 50 mg PO TID 10/02/22 01/29/23 History irbesartan 75 mg tablet 75 mg PO DAILY #90 tabs 10/02/22 01/29/23 Rx multivitamin 1 tab PO DAILY 10/02/22 01/29/23 History triamterene 37.5 1 tab PO DAILY #90 tabs 10/09/22 01/29/23 Rx mg-hydrochlorothiazide 25 mg tablet cyclobenzaprine 5 mg tablet 5 mg PO TID PRN muscle spasm #12 01/29/23 01/29/23 Rx tabs atorvastatin 40 mg tablet See Rx Instructions .Route 01/31/23 Rx .COMPLEX #90 tabs tamsulosin 0.4 mg capsule 0.4 mg PO DAILY #90 caps 01/31/23 Rx Allergies Allergy/AdvReac Type Severity Reaction Status Date / Time SAIDA Inhibitors Allergy Mild COUGH Verified 02/03/23 07:24 [SAIDA INHIBITORS] amlodipine [AMLODIPINE] Allergy Mild LE EDMA, Verified 02/03/23 07:24 RASH escitalopram [ESCITALOPRAM] Allergy Mild DIZZY, Verified 02/03/23 07:24 CONFUSED, MUSCLE RIGIDITY hydrochlorothiazide AdvReac Intermediate mild Verified 02/03/23 07:24 [HYDROCHLOROTHIAZIDE] hypercalcemia triamterene [TRIAMTERENE] AdvReac Intermediate elevated Verified 02/03/23 07:24 creatinine diltiazem [DILTIAZEM] AdvReac Mild BRADYCARDIA, Verified 02/03/23 07:24 NEAR SYNCOPE terazosin [TERAZOSIN] AdvReac Mild ORTHOSTASIS Verified 02/03/23 07:24 venlafaxine [VENLAFAXINE] AdvReac Mild CRAMPING, Verified 02/03/23 07:24 GI S/S Exam Vital Signs (past 8 hours): - 02/03/23 07:20 02/03/23 07:21 02/03/23 07:30 Temperature 97.8 F Pulse Rate 66 67 61 Respiratory Rate 18 Blood Pressure 189/90 H Pulse Oximetry 99 96 98 Oxygen Delivery Method Room Air 02/03/23 08:04 02/03/23 08:25 02/03/23 08:25 Temperature Pulse Rate 55 L 54 L Respiratory Rate Blood Pressure 180/86 H Pulse Oximetry 97 98 Oxygen Delivery Method 02/03/23 08:30 02/03/23 08:30 Temperature Pulse Rate 47 L Respiratory Rate Blood Pressure 171/81 H Pulse Oximetry 96 Oxygen Delivery Method Oxygen Delivery Method Room Air Narrative Exam Narrative: A large left inguinal hernia that is partially reducible abdomen soft Objective Labs 02/03/23 07:30 02/03/23 07:30 Labs: Laboratory Results - last 24 hr 02/03/23 02/03/23 02/03/23 07:30 07:30 07:30 WBC 7.8 RBC 4.67 Hgb 14.7 Hct 42.8 MCV 91.6 MCH 31.6 MCHC 34.5 RDW 13.7 Plt Count 188 Neut % (Auto) 64.8 Lymph % (Auto) 19.1 L [place] % (Auto) 8.2 Eos % (Auto) 7.0 H Baso % (Auto) 0.9 Neut # (Auto) 5000 Lymph # (Auto) 1500 [place] # (Auto) 600 Eos # (Auto) 500 H Baso # (Auto) 100 PT 14.3 H INR 1.2 APTT 33 Sodium 137 Potassium 3.2 L Chloride 105 Carbon Dioxide 26 BUN 20 Creatinine 0.98 Estimated GFR > 60 BUN/Creatinine Ratio 20.4 Glucose 98 Calcium 9.1 Total Bilirubin 0.9 AST 25 ALT 21 Alkaline Phosphatase 86 Total Protein 7.0 Albumin 4.0 Globulin 3.0 Albumin/Globulin Ratio 1.3 Blood Type Antibody Screen 02/03/23 07:30 WBC RBC Hgb Hct MCV MCH MCHC RDW Plt Count Neut % (Auto) Lymph % (Auto) [place] % (Auto) Eos % (Auto) Baso % (Auto) Neut # (Auto) Lymph # (Auto) [place] # (Auto) Eos # (Auto) Baso # (Auto) PT INR APTT Sodium Potassium Chloride Carbon Dioxide BUN Creatinine Estimated GFR BUN/Creatinine Ratio Glucose Calcium Total Bilirubin AST ALT Alkaline Phosphatase Total Protein Albumin Globulin Albumin/Globulin Ratio Blood Type AB Positive Antibody Screen Negative [facility] Medical History Abdominal aortic aneurysm (AAA) without rupture (2004) Anxiety Asthma (~1947) Blurring of visual image Cardiac arrhythmia Cataract (~2012) Chicken pox (~1943) Colon polyps (~1996) Excessive daytime sleepiness Foot pain GI bleeding (~2013) History of excision of epidermal inclusion cyst (05/09/14) History of prostate cancer History of urinary incontinence (~1999) Hypertension Kidney stones (~1985) Lumbar spine pain Measles (~1942) Mumps (~1944) Obstructive sleep apnea, adult (~2011) Periodic limb movement disorder (PLMD) Vision disorder Surgical History Anesthesia Lump of skin of back (~2014) Prostate cancer (~1998) Status post appendectomy Status post routine circumcision Status post tonsillectomy and adenoidectomy Family History Brother Cancer Brother Age: 82 Heart disease Hypertension Hyperlipidemia Brother Age: 80 Hypertension Hyperlipidemia Child Age: 60 Hypertension Child Age: 59 Hypertension Father Heart disease Mother Age: 102 Cancer Hypertension Hyperlipidemia Osteoporosis Tobacco & Substance Use Smoking Status: Former smoker Tobacco: How many years used: 25 alcohol intake: current (1 drink per day ) substance use type: does not use Assessment & Plan Assessment and plan (1) Irreducible left inguinal hernia: Status: Acute Plan Plan for open left inguinal hernia repair with mesh tomorrow afternoon.
== END 2023-02-03 10:40 | disposition home or self-care (01) ==
PROVIDERS: Emergency Provider Emergency Medicine; Family Provider Internal Medicine Cardiovascular Disease; PCP Family Medicine
DX: K40.30 Unilateral inguinal hernia, with obstruction, without gangrene, not specified as recurrent (principal)
CPT/HCPCS: 36415; 74174; 80053; 85025; 85610; 85730; 86850; 86900; 86901; 99284; Q9967

== ENCOUNTER 2023-02-04 11:21 | Day surgery (SDC) | payer MEDICARE, BC, SELFPAY ==
[2023-02-03 13:19] VITALS: BMI 30.7
[2023-02-04 11:48] VITALS: BP 190/102; PULSE 78; RESP 18; TEMP 36.2; O2SAT 97; BMI 29.0
[2023-02-04] MEDS: LACTATED RINGERS 1,000 ML 42 ML IV (11:58)
--- NOTE | 2023-02-04 12:24 | PM.PREOP ---
Pre-operative Note COVID-19 COVID-19 status: Not tested Interval Note History & Physical reviewed/Exam performed by Physician: Yes Changes to H&P: No ASA Class (for procedural sedation): II
[2023-02-04] MEDS: CEFAZOLIN 2 GM/100 ML PREMIX 100 ML IV (12:52)
--- NOTE | 2023-02-04 13:06 | SUR.OPER ---
Supine on padded OR bed, head on pillow, arms secured on padded arm boards at <90 degrees abduction, legs uncrossed, safety belt at thigh, tape over blanket over lower legs.
[2023-02-04] MEDS: BUPIVACAINE 0.5% (PF) 30 ML, EPINEPHrine 0.15 MG INJ (13:21)
--- NOTE | 2023-02-04 14:16 | PM.OP.1 ---
Operative Date/Time/Diagnoses Date of procedure: 02/04/23 Time of procedure: 14:17 Pre-op diagnosis: Incarcerated left inguinal hernia Post-op diagnosis: same Procedure & Clinicians Procedure: Open left inguinal hernia repair with mesh Same procedure as scheduled: Yes Surgeon: Trever Gore Estimating Manager: Pawan Louise Anesthesia Type: General Operative Notes Procedure in detail: Preoperative antibiotic was administered. The patient was brought to the operating room and placed on the table in supine position general anesthesia was induced. The left groin was prepped and draped in the normal fashion and a time-out was performed. The hernia was partially reduced but could not be completely reduced even in the Trendelenburg position. Roughly 10 mL of local anesthetic were injected into the skin and subcutaneous adipose tissue over the left groin. A 9 cm incision was made over the left inguinal canal. Dissection was carried down through the subcutaneous adipose tissue. We exposed the external oblique aponeurosis in the direction of the fibers. Additional local was injected deep to the aponeurosis. A 15 blade scalpel was used to maame the external oblique aponeurosis. Metzenbaum scissors were used to carefully open the aponeurosis in the direction of the fibers. We completely exposed the inguinal canal. The cord was dissected free from the inguinal ligament and floor of the inguinal canal and the external oblique aponeurosis was dissected off of the internal oblique taking care not to injure the hypogastric nerve. The ilioinguinal nerve was injected with lidocaine and sacrificed proximally. We encircled the cord with a Kenisha drain for retraction. There was a large indirect hernia containing a tongue of omentum and a loop of bowel. The hernia contents were reduced into the abdomen with the aid of Trendelenburg positioning. We placed a polypropylene mesh over the inguinal canal floor. The mesh was secured with multiple interrupted 3-0 Prolene sutures to the pubic tubercle and shelving edge of the inguinal ligament as well as to the conjoint tendon medially. We overlapped the tails to recreate an internal ring and secured the medial tail to the inguinal ligament with additional sutures. We injected some more local into the fatty tissue in the inguinal canal and cord. Finally, we removed the Kenisha drain and closed the external oblique fascia with a running 3-0 Vicryl suture. Skin was closed with interrupted 3-0 Vicryl dermal sutures and a running 4 Monocryl subcuticular stitch. EBL 10 mL The patient was awakened and brought to recovery room. Post-operative Condition: stable Disposition: PACU
[2023-02-04 14:19] VITALS: BP 128/65; PULSE 71; RESP 17; TEMP 36.3; O2SAT 95
[2023-02-04 14:27] VITALS: BP 134/82; PULSE 81; RESP 19; O2SAT 98
[2023-02-04 14:31] VITALS: BP 131/80; PULSE 79; RESP 15; O2SAT 97
[2023-02-04 14:34] VITALS: BP 134/71; PULSE 74; RESP 15; O2SAT 95
[2023-02-04 14:40] VITALS: BP 155/82; PULSE 75; RESP 17; TEMP 35.9; O2SAT 95
== END 2023-02-04 15:16 | disposition home or self-care (01) ==
PROVIDERS: Family Provider Internal Medicine Cardiovascular Disease; PCP Family Medicine; Referring Provider Surgery; Visit Provider Surgery
PROC: 0YQ64ZZ Repair Left Inguinal Region, Percutaneous Endoscopic Approach (ICD-10-PCS; CPT 49505; principal; 2023-02-04 12:45)
DX: K40.90 Unilateral inguinal hernia, without obstruction or gangrene, not specified as recurrent (principal)
CPT/HCPCS: 49505; J0171; J0690; J1100; J2405; J2704; J3010

== ENCOUNTER → 2023-03-26 14:48 | Outpatient (CLI) | payer MEDICARE, BC, SELFPAY ==
[2023-03-26 17:14] LABS: Appearance Urine UA CLEAR; Bilirubin Urine UA NEGATIVE (NEGATIVE); Color Urine UA YELLOW; Glucose Urine UA NEGATIVE (Negative); Ketones Urine UA NEGATIVE (NEGATIVE); Leukocyte Esterase Urine UA NEGATIVE (NEGATIVE); Nitrite Urine UA NEGATIVE (Negative); Occult Blood Urine UA TRACE-INTACT (Negative); Protein Urine UA NEGATIVE (Negative); pH Urine UA 6.5 (4.5-8.0)
[2023-03-26 17:22] LABS: Bacteria Urine None Seen; Culture Indicated Urine Cult Not Indicated; RBC Urine 5-10/HPF (0-5/HPF); Squamous Epithelial Cell Urine 0-1 /HPF (0-5/HPF); WBC Urine 0-1/HPF (0-5/HPF)
== END ==
PROVIDERS: Family Provider Internal Medicine Cardiovascular Disease; PCP Family Medicine; Referring Provider Surgery; Visit Provider Surgery
DX: R30.0 Dysuria (principal)
CPT/HCPCS: 81001; 99214

== ENCOUNTER → 2023-03-27 10:36 | Outpatient (CLI) | payer MEDICARE, BC, SELFPAY ==
--- NOTE | 2023-03-27 10:38 | DI.RAD.S_ITS ---
PROCEDURE: XR LUMBAR SPINE 2-3V INDICATIONS: eval low back pain TECHNIQUE: 3 views of the lumbar spine were acquired. COMPARISON: [facility], CT, CT ANGIO ABDOMEN PELVIS, 02/03/2023, 7:56. FINDINGS: Bones: 5 [id number] vertebrae are present. Right convexity thoracolumbar spine centered at T12-L1. Redemonstrated anterolisthesis of L4 on L5, approximately 8 mm. 5 mm retrolisthesis L2 on L3 also present. Moderate-severe multilevel degenerative changes with disc height loss, endplate spurring, and facet arthropathy. No definite lumbar vertebral body compression fracture identified. Soft tissues: Overlying bowel gas pattern is normal. Vascular calcifications redemonstrated. IMPRESSION: Multilevel degenerative changes of the lumbar spine. Dictated by: Jose Cruz M.D. on 03/27/2023 at 14:16 Approved by: Jose Cruz M.D. on 03/27/2023 at 14:25
--- NOTE | 2023-03-27 10:38 | DI.RAD.S_ITS ---
PROCEDURE: XR HIP W PEL IF DONE RT 2V INDICATIONS: eval hip pain TECHNIQUE: AP pelvis with lateral view(s) of the right hip(s). COMPARISON: None. FINDINGS: Bones: No fractures or dislocations. Pelvic ring appears intact. Mild bilateral hip joint space narrowing and spurring. Soft tissues: The visualized bowel gas pattern is normal. vascular calcifications are present. Prostate brachytherapy seeds are present. IMPRESSION: No acute fracture identified. Degenerative changes of both hips are present. Dictated by: Jose Cruz M.D. on 03/27/2023 at 14:09 Approved by: Jose Cruz M.D. on 03/27/2023 at 14:16
== END ==
PROVIDERS: Family Provider Internal Medicine Cardiovascular Disease; PCP Family Medicine; Referring Provider Family Medicine; Visit Provider Family Medicine
DX: M54.50 Low back pain, unspecified (principal); M53.3 Sacrococcygeal disorders, not elsewhere classified; M25.559 Pain in unspecified hip
CPT/HCPCS: 72100; 73502

== ENCOUNTER → 2023-04-17 08:12 | Outpatient (CLI) | payer MEDICARE, BC, SELFPAY ==
[2023-04-17 09:30] LABS: Appearance Urine UA CLEAR; Bilirubin Urine UA NEGATIVE (NEGATIVE); Color Urine UA YELLOW; Glucose Urine UA NEGATIVE (Negative); Ketones Urine UA NEGATIVE (NEGATIVE); Leukocyte Esterase Urine UA 2+ (NEGATIVE); Nitrite Urine UA POSITIVE (Negative); Occult Blood Urine UA 3+ (Negative); Protein Urine UA TRACE (Negative); pH Urine UA 6.5 (4.5-8.0)
[2023-04-17 09:51] LABS: RBC Urine 10-30/HPF (0-5/HPF); WBC Urine 10-30/HPF (0-5/HPF)
[2023-04-17 09:52] LABS: Bacteria Urine Moderate (10-30); Culture Indicated Urine Specimen Cultured; Squamous Epithelial Cell Urine 0-1 /HPF (0-5/HPF)
== END ==
PROVIDERS: Family Provider Internal Medicine Cardiovascular Disease; PCP Family Medicine; Referring Provider Family Medicine; Visit Provider Family Medicine
DX: R30.0 Dysuria (principal); R82.90 Unspecified abnormal findings in urine
CPT/HCPCS: 81001; 87077; 87086; 87147; 87186

== ENCOUNTER → 2023-04-30 15:18 | Outpatient (CLI) | payer MEDICARE, BC, SELFPAY ==
--- NOTE | 2023-04-30 15:19 | DI.CT.S_ITS ---
PROCEDURE: CT KIDNEY URETER BLADDER (KUB) INDICATIONS: back pain, dysuria TECHNIQUE: Axial sections were acquired from the lung bases to the pubic symphysis. Coronal and sagittal reformats were performed. For radiation dose reduction, the following was used: automated exposure control, adjustment of mA and/or kV according to patient size. COMPARISON: None. FINDINGS: Image quality: Excellent. Lung bases: Left upper lobe 4 millimeter pulmonary nodules (series 3, image 2 and 5). Heart: Coronary artery calcifications/stents URINARY: Right Kidney: No stones or hydronephrosis. There are multiple simple and hemorrhagic cysts. The largest exophytic cyst in the interpolar region contains mural calcifications, unchanged since 06/15/2022. Right Ureter: No hydroureter. Left Kidney: No stones or hydronephrosis. Redemonstration of multiloculated left renal cyst containing areas of hyperdensity measuring approximately 5.3 centimeter. Multiple additional simple cysts.4 Left Ureter: No hydroureter. Bladder: Normal wall thickness. No stones. ABDOMEN: Liver: Subcentimeter hypodensity at the hepatic dome (2/18), too small to characterize. Gallbladder: Unremarkable. Biliary ducts: Unremarkable. Pancreas: Unremarkable. Spleen: Unremarkable. Adrenal Glands: Unremarkable. Stomach and Bowel: Stomach and small bowel loops are unremarkable. Colonic diverticulosis. No acute diverticulitis. Peritoneum: No abnormal intraperitoneal fluid. No free air. Ventral Wall: No hernia. Abdominal Nodes: No enlarged retroperitoneal or mesenteric lymph nodes. Vessels: Stable fusiform aneurysm of the distal abdominal aorta. Similar ectatic right common iliac artery. Aorto bi iliac atherosclerotic calcifications PELVIS: Pelvic Organs: Prostatic brachytherapy seeds. Bladder is incompletely distended, limiting evaluation. Pelvic Nodes: Unremarkable. Miscellaneous: Right fat containing inguinal hernia. Bones: No acute or suspicious osseous lesion. Severe lumbar degenerative changes. IMPRESSION: 1. No nephrolithiasis or hydronephrosis. 2. Left renal multiloculated cystic structure with areas of hyperdensity measuring up to 5.3 centimeters. Consider further evaluation with dedicated CT renal protocol. 3. Left upper lobe 4 mm pulmonary nodules. If patient is high risk, consider follow-up CT in 12 months 4. Colonic diverticulosis. No CT evidence of acute diverticulitis. 5. Stable infrarenal abdominal aortic aneurysm and ectatic right common iliac artery since 02/03/2023. Approved by: Portia Dye M.D. on 04/30/2023 at 23:31
--- NOTE | 2023-04-30 15:19 | DI.MRI.S_ITS ---
PROCEDURE: MR LUMBAR SPINE WO CON INDICATIONS: right sided radiculopathy TECHNIQUE: Noncontrast sagittal T1 spin echo and T2 fast echo, sagittal STIR, and T2 fast spin echo through the lumbar spine. In cases with scoliosis, additional coronal T2 fast spin echo may be performed. COMPARISON: None. FINDINGS: Image quality: Excellent. Alignment and Curvature: Grade 1 anterior spondylolisthesis at L3-4 and grade 2 anterior spondylolisthesis L4-5. Bone Marrow: Marrow is of normal overall signal. No acute vertebral body compression fractures. Spinal Cord: Conus medullaris terminates at the L1 level. Visualized cord demonstrates normal signal and size. Paraspinous Soft Tissues: Distal abdominal aortic aneurysm measures 5 cm in diameter T12-L1: Disc space narrowing. No central foraminal stenosis L1-L2: Disc height is preserved. No central or foraminal stenosis L2-L3: Disc space narrowing and circumferential disc bulge with hypertrophic facet joints and ligamentum flavum laxity results in moderate central stenosis. Moderate bilateral foraminal stenosis L3-L4: Disc space narrowing and circumferential disc bulge with hypertrophic facet joints and ligamentum flavum laxity combined result in severe central stenosis. Severe bilateral foraminal stenosis greater on the left L4-L5: Disc space narrowing with circumferential disc bulge and hypertrophic facet joints additionally, there is a 7 mm synovial cyst arising from the right facet joint. Severe central stenosis and moderate bilateral foraminal stenosis present. L5-S1: Disc space narrowing and circumferential disc bulge present. Mild central stenosis. Severe right and moderate left foraminal stenosis IMPRESSION: Multilevel degenerative disc disease and arthropathy results in varying degrees of central and foraminal stenosis including severe central stenosis L3-4 and L4-5 Right L4-5 synovial cyst Approved by: Chapito Hui M.D. on 04/30/2023 at 18:37
== END ==
PROVIDERS: Family Provider Internal Medicine Cardiovascular Disease; PCP Family Medicine; Referring Provider Family Medicine; Visit Provider Family Medicine
DX: M51.36 Other intervertebral disc degeneration, lumbar region (principal); M51.37 Other intervertebral disc degeneration, lumbosacral region; M47.816 Spondylosis without myelopathy or radiculopathy, lumbar region; M48.061 Spinal stenosis, lumbar region without neurogenic claudication; M48.07 Spinal stenosis, lumbosacral region; M71.38 Other bursal cyst, other site; N28.1 Cyst of kidney, acquired; K57.90 Diverticulosis of intestine, part unspecified, without perforation or abscess without bleeding; K40.90 Unilateral inguinal hernia, without obstruction or gangrene, not specified as recurrent; R91.8 Other nonspecific abnormal finding of lung field; I71.40 Abdominal aortic aneurysm, without rupture, unspecified; R30.0 Dysuria; M54.50 Low back pain, unspecified
CPT/HCPCS: 72148; 74176

== ENCOUNTER → 2023-05-16 10:30 | Outpatient (CLI) | payer MEDICARE, BC, SELFPAY ==
--- NOTE | 2023-05-16 10:31 | DI.CT.S_ITS ---
PROCEDURE: CT ABDOMEN RENAL PROTOCOL INDICATIONS: renal cyst, left TECHNIQUE: Optional 5 mm thick noncontrast images acquired from the diaphragm to the iliac crests. After the administration of intravenous contrast, 5 mm thick images again acquired from the diaphragm to the iliac crests in the arterial and urographic phases. 5 mm thick coronal and sagittal reformats were then acquired. For radiation dose reduction, the following was used: automated exposure control, adjustment of mA and/or kV according to patient size. COMPARISON: None. FINDINGS: Image quality: Excellent. Lung bases: Lung bases are clear. Heart size is enlarged. Small hiatal hernia. Genitourinary: Polycystic kidney disease. Complex left renal cystic mass with a peripheral rim of nonenhancing hemorrhage, measuring 5.3 centimeter; Bosniak 2 F . Mildly thickened internal septations, measuring up to 3 millimeters. Remaining cystic lesions are characterized as Bosniak 1 or 2, not requiring follow-up. Other solid organs: Liver is normal in size and enhancement. Gallbladder is unremarkable . Biliary system is non dilated. Pancreas enhances normally. Spleen is normal in size and enhancement. No adrenal nodules. Peritoneum and bowel: Unenhanced bowel loops are normal in wall thickness and caliber. No free fluid or air. Nodes and vessels: Stable aortic aneurysm measuring up to 5.4 centimeter. Bones: No suspicious bony lesions. No vertebral body compression fractures. Miscellaneous: No ventral hernias. IMPRESSION: The complex renal cystic lesion on the anterior margin of the left kidney is a Bosniak 2 cyst. The majority of these cystic lesions are benign. When malignant, they are mostly indolent. Typical follow-up is in 6 months and 12 months for a total of 5 years. Stable infrarenal aortic aneurysm measuring 5.4 centimeter. Recommend vascular surgery referral if not already performed. Dictated by: Epifanio Veloz M.D. on 05/16/2023 at 12:02 Approved by: Epifanio Veloz M.D. on 05/16/2023 at 12:16
[2023-05-16 10:54] LABS: Estimated Glomerular Filt Rate > 60 mL/min (>60)
== END ==
PROVIDERS: Radiology Diagnostic Radiology; Family Provider Internal Medicine Cardiovascular Disease; PCP Family Medicine; Referring Provider Family Medicine; Visit Provider Family Medicine
DX: N28.1 Cyst of kidney, acquired (principal)
CPT/HCPCS: 36415; 74170; 82565; Q9967

== ENCOUNTER → 2023-07-04 09:35 | Outpatient (CLI) | payer MEDICARE, BC, SELFPAY ==
--- NOTE | 2023-07-04 09:38 | DI.US.S_ITS ---
PROCEDURE: US CAROTID DOPPLER BI INDICATIONS: CAROTID STENOSIS TECHNIQUE: Color and pulse Doppler interrogation was performed of both carotid systems, with image documentation and velocity measurements. COMPARISON: [facility], , CAROTID DOPPLER BI, 03/29/2020, 11:15. FINDINGS: Stenosis calculations are based on SRU (Society of Radiologists in Ultrasound) criteria. The flow velocities and the arterial waveforms are normal within both carotid arterial systems. Mild atherosclerotic plaque is seen of the carotid bifurcations on both sides. The estimated degree of internal carotid artery stenosis is less than 50%. Antegrade flow is confirmed within both vertebral arteries. IMPRESSION: No hemodynamically significant stenosis is seen. No significant change from the prior. Dictated by: Clint White M.D. on 07/04/2023 at 9:34 Approved by: Clint White M.D. on 07/04/2023 at 9:43
== END ==
PROVIDERS: Family Provider Internal Medicine Cardiovascular Disease; PCP Family Medicine; Referring Provider Internal Medicine Cardiovascular Disease; Visit Provider Internal Medicine Cardiovascular Disease
DX: I65.23 Occlusion and stenosis of bilateral carotid arteries (principal)
CPT/HCPCS: 93880

== ENCOUNTER → 2023-07-31 14:01 | Outpatient (CLI) | payer MEDICARE, BC, SELFPAY ==
--- NOTE | 2023-07-31 14:05 | DI.RAD.S_ITS ---
PROCEDURE: XR SHOULDER RT MIN 2V INDICATIONS: RIGHT SHOULDER PAIN TECHNIQUE: 3 views of the shoulder were acquired. COMPARISON: [facility], CR, XR SHOULDER RT MIN 2V, 11/20/2020, 8:45. FINDINGS: Bones: No fractures or dislocations. No suspicious bony lesions. Visualized ribs appear intact. Glenohumeral and acromioclavicular joint space narrowing with associated osteophytosis. Soft tissues: No suspicious soft tissue calcifications. IMPRESSION: Marked shoulder osteoarthritis. Dictated by: Epifanio Veloz M.D. on 07/31/2023 at 16:55 Approved by: Epifanio Veloz M.D. on 07/31/2023 at 16:56
--- NOTE | 2023-07-31 14:05 | DI.RAD.S_ITS ---
PROCEDURE: XR CERVICAL SPINE 4V OR 5V INDICATIONS: NECK PAIN TECHNIQUE: 5 views of the cervical spine acquired. COMPARISON: None. FINDINGS: Bones: No fractures or dislocations to the T1 level. There is severe disc height loss at C3-4. Moderate to severe disc height loss at remaining levels. Diffuse facet arthrosis. Reversal of the normal cervical lordosis. Bilateral neural foraminal narrowing at all levels. Soft tissues: No prevertebral soft tissue swelling. IMPRESSION: Moderate to severe, multilevel degenerative disc disease and facet arthrosis, resulting in multilevel neural foraminal narrowing. Dictated by: Epifanio Veloz M.D. on 07/31/2023 at 16:56 Approved by: Epifanio Veloz M.D. on 07/31/2023 at 16:57
== END ==
PROVIDERS: Family Provider Internal Medicine Cardiovascular Disease; PCP Family Medicine; Referring Provider Anesthesiology; Visit Provider Anesthesiology
DX: M48.02 Spinal stenosis, cervical region (principal); M47.812 Spondylosis without myelopathy or radiculopathy, cervical region; M50.30 Other cervical disc degeneration, unspecified cervical region; M25.511 Pain in right shoulder; M19.011 Primary osteoarthritis, right shoulder
CPT/HCPCS: 72050; 73030

== ENCOUNTER 2023-08-13 14:43 | Outpatient (CLI) | payer MEDICARE, BC, SELFPAY ==
[2023-08-13] VITALS (9 sets, daily range): BP systolic 174–202; BP diastolic 8–91; PULSE 45–53; RESP 14–20; TEMP 35.6; O2SAT 98–99
[2023-08-13] MEDS: iopamidoL 15 ML VIAL 3 ML INJ (15:30)
[2023-08-13] MEDS: DEXAMETHASONE 10 MG/ML VIAL INJ (15:30)
--- NOTE | 2023-08-13 15:30 | DI.RAD.S_ITS ---
PROCEDURE: PAIN L INTERLAMINAR/CAUDAL INJ INDICATIONS: radiculopathy COMPARISON: None. FINDINGS: Fluoroscopic spot filming was performed to verify placement of spinal needles at the L4-5 level(s), as labeled on the films. Appropriate location(s) of the needle tip(s) was confirmed by injection of iodinated contrast. IMPRESSION: Fluoroscopic guidance Approved by: Chapito Hui M.D. on 08/13/2023 at 18:03
--- NOTE | 2023-08-13 16:40 | P.PCN_ITS ---
Date/Time/Diagnoses Date of procedure: 08/13/23 Time of procedure: 15:30 Procedure Notes Physician: Matthew Hassan Total Fluoroscopy time (seconds): 32 Total sedation minutes: 0 Procedure in detail & Post-procedure care: L4-5 Interlaminar Epidural Steroid Injection Indications: Olman is presenting for treatment of lumbar radiculopathy with low back and leg pain. Preoperative diagnosis: Lumbar radiculopathy Postoperative diagnosis: Same Focused Examination: Ax3 Mood and affect are normal Vital Signs: VSS Consent: Following review of allergies and potential side effects/complications, including, but not necessarily limited to, infection, allergic reaction, local tissue breakdown, stroke, temporary or permanent nerve injury, paralysis, and possible , the patient indicated that they understood and agreed to proceed.? An informed consent document was signed by the patient, witnessed by a nurse and placed in the patient's chart.? Additionally, other treatment options including medications and physical therapy were reviewed with the patient. All questions were answered. Site was then marked. Anesthesia: Local Position: Prone Monitoring: NIBP, Pulse oximetry, 3 lead EKG Needle used: 18 G 3.5? Tuohy Contrast: Isovue 300M Injectate: Dexamethasone 10 mg with 1% lidocaine 2 mL Technique: The skin was prepped with chloraprep and then draped in a sterile fashion. Time out was performed as per protocol. Oxygen applied via NC. Skin and subcutaneous structures of the needle entry site was then infiltrated with 3 mL of lidocaine 1%. Under AP, lateral and contralateral oblique fluoroscopic control, the Tuohy needle was guided into the L4-5 epidural space. The space was accessed with loss of resistance technique. Isovue 300M was then injected and the spread was consistent with the epidural space. There was no evidence for intravascular or intrathecal uptake. After negative aspiration, the above- mentioned injectate was then slowly administered and the needle withdrawn. The patient expressed no unusual discomfort or paresthesias during the injection. Band-Aids applied to injection sites. EBL: less than 1 ml Complications: None Post Procedure: Patient was taken to the recovery and monitored. The patient was provided a Pain Log to continue to record the patient's response to the target- specific procedure prior to the patient's follow-up visit with the referring physician. Patient was stable upon discharge. Detailed post procedure instructions were provided. Patient was asked to call in the event of worsening pain, fever, weakness, numbness or bladder or bowel incontinence.
== END 2023-08-13 16:00 | disposition home or self-care (01) ==
PROVIDERS: Family Provider Internal Medicine Cardiovascular Disease; PCP Family Medicine; Referring Provider Anesthesiology; Visit Provider Anesthesiology
DX: M54.16 Radiculopathy, lumbar region (principal)
CPT/HCPCS: 62323; J1100

== ENCOUNTER 2023-09-05 16:40 | Emergency (ER) | payer MEDICARE, BC, SELFPAY ==
[2023-09-05] VITALS (17 sets, daily range): BP systolic 143–187; BP diastolic 72–86; PULSE 48–66; RESP 12–22; TEMP 36.9; O2SAT 96–99; BMI 30.8
--- NOTE | 2023-09-05 17:03 | DI.RAD.S_ITS ---
PROCEDURE: XR CHEST 1V INDICATIONS: Shortness of breath TECHNIQUE: One view of the chest was acquired. COMPARISON: None. FINDINGS: Surgical changes and devices: None. Lungs and pleura: Lungs are clear. No pleural effusions or pneumothorax. Mediastinum: Mediastinal contours appear normal. Heart size is mildly prominent. Bones and chest wall: No suspicious bony lesions. Overlying soft tissues appear unremarkable. IMPRESSION: No acute pulmonary process. Dictated by: Tita Bella M.D. on 09/05/2023 at 18:05 Approved by: Tita Bella M.D. on 09/05/2023 at 18:05
[2023-09-05 17:10] LABS: Add Manual Diff / Slide Review NO; Basophils Absolute Auto 0 /uL (0-100); Basophils Percent Auto 0.2 % (0-2); Eosinophils Absolute Auto 200 /uL (0-450); Eosinophils Percent Auto 1.7 % (2-4); Hemoglobin 14.3 g/dL (13.5-17.5); Lymphocytes Absolute Auto 1800 /uL (1100-4500); Mean Corpuscular Hemoglobin 31.3 PG (26-34); Mean Corpuscular Volume 92.1 fL (80-100); Monocytes Absolute Auto 1100 /uL (0-900); Monocytes Percent Auto 10.5 % (3-14); Neutrophils Absolute Auto 7500 /uL (1500-7000); Neutrophils Percent Auto 70.6 % (50-75); Platelet Count 201 X10^3/uL (150-400); Red Blood Cell Count 4.56 X10^6/uL (4.5-5.9); Red Cell Distribution Width 13.9 % (11.6-14.8); White Blood Cell Count 10.6 X10^3/uL (4.5-11.0)
[2023-09-05 17:20] LABS: INR 1.1 (0.9-1.3); Prothrombin Time 12.2 SECONDS (9.4-12.5)
[2023-09-05 17:23] LABS: Lactate (Lactic Acid) 1.4 mmol/L (0.7-2.1)
[2023-09-05 17:24] LABS: Alanine Aminotransferase 21 IU/L (<50); Albumin 4.2 g/dL (3.5-5.0); Albumin Globulin Ratio 1.2 (1.0-2.8); Alkaline Phosphatase 79 U/L (38-126); Aspartate Aminotransferase 26 IU/L (17-59); BUN Creatinine Ratio 22.1 (6-22); Bilirubin Total 0.6 mg/dL (0.2-1.3); Blood Urea Nitrogen 23 mg/dL (9-20); Calcium 9.9 mg/dL (8.4-10.2); Carbon Dioxide 26 mmol/L (22-32); Chloride 104 mmol/L (98-107); Estimated Glomerular Filt Rate > 60 mL/min (>60); Globulin 3.4 g/dL (1.7-4.1); Glucose 87 mg/dL (80-110); HEMOLYSIS < 15 (0-50); Potassium 3.2 mmol/L (3.4-5.1); Sodium 138 mmol/L (137-145); Total Protein 7.6 g/dL (6.3-8.2)
[2023-09-05 17:36] LABS: NT-proBNP (BNP-Adult 18+) 360 pg/mL (<450); Troponin I < 0.012 ng/mL (0.01-0.034)
[2023-09-05 19:08] LABS: Troponin I 0.022 ng/mL (0.01-0.034)
--- NOTE | 2023-09-05 19:44 | ED_ITS ---
HPI - Chest Pain General Chief Complaint: Chest Pain Stated Complaint: pain at shoulder blades/close to syncope earlier T Time Seen by Provider: 09/05/23 17:34 History of Present Illness HPI narrative: 88-year-old male presents with left-sided para-spinal thoracic back and shoulder pain for 1-2 weeks that has been progressively worsening. 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 Patient states that earlier today pain was sudden, sharp, non-radiating and felt briefly short of breath, no other complaints or associated symptoms noted. Patient arrives via private vehicle. Patient is awake, alert, in no apparent distress and maintaining his own airway. Related Data Home Medications Medication Instructions Recorded Confirmed loratadine 10 mg tablet (Claritin) 10 mg PO QDAYP ##0 05/06/12 08/04/23 aspirin 81 mg tablet,delayed 81 mg PO DAILY 10/02/22 08/04/23 release (Adult Aspirin Regimen) cholecalciferol (vitamin D3) 25 25 mcg PO DAILY 10/02/22 08/04/23 mcg (1,000 unit) capsule hydralazine 50 mg tablet 50 mg PO TID 10/02/22 08/04/23 multivitamin 1 tab PO DAILY 10/02/22 08/04/23 metoprolol succinate 25 mg 12.5 mg PO DAILY 07/02/23 08/04/23 tablet,extended release 24 hr potassium chloride 10 mEq 10 meq PO BID 07/02/23 08/04/23 capsule,extended release Previous Rx's Medication Instructions Recorded irbesartan 75 mg tablet 75 mg PO DAILY #90 tabs 10/02/22 tamsulosin 0.4 mg capsule 0.4 mg PO DAILY #90 caps 01/31/23 atorvastatin 40 mg tablet See Rx Instructions .Route 05/02/23 .COMPLEX #90 tabs triamterene 37.5 1 tab PO DAILY #90 tabs 06/24/23 mg-hydrochlorothiazide 25 mg tablet lidocaine 5 % topical patch 1 patch topical DAILY #30 ea 09/05/23 (Lidoderm) Allergies Allergy/AdvReac Type Severity Reaction Status Date / Time SAIDA Inhibitors Allergy Mild COUGH Verified 08/04/23 14:29 [SAIDA INHIBITORS] amlodipine [AMLODIPINE] Allergy Mild LE EDMA, Verified 08/04/23 14:29 RASH escitalopram [ESCITALOPRAM] Allergy Mild DIZZY, Verified 08/04/23 14:29 CONFUSED, MUSCLE RIGIDITY hydrochlorothiazide AdvReac Intermediate mild Verified 08/04/23 14:29 [HYDROCHLOROTHIAZIDE] hypercalcemia triamterene [TRIAMTERENE] AdvReac Intermediate elevated Verified 08/04/23 14:29 creatinine diltiazem [DILTIAZEM] AdvReac Mild BRADYCARDIA, Verified 08/04/23 14:29 NEAR SYNCOPE terazosin [TERAZOSIN] AdvReac Mild ORTHOSTASIS Verified 08/04/23 14:29 venlafaxine [VENLAFAXINE] AdvReac Mild CRAMPING, Verified 08/04/23 14:29 GI S/S Review of Systems Review of Systems Narrative: See HPI for pertinent positives otherwise review of systems negative Patient History Medical History Primary osteoarthritis, right shoulder Right shoulder pain Lumbar spondylosis Lumbar radiculopathy Right foot pain Uncontrolled hypertension Hx of prostatic malignancy (1998) Right hip pain Low back pain Periodic limb movement disorder (PLMD) Obstructive sleep apnea, adult (~2011) Excessive daytime sleepiness Blurring of visual image Nephrolithiasis (05/06/12) History of prostate cancer Vision disorder Asthma (~1947) Mumps (~1944) Measles (~1942) Chicken pox (~1943) Cataract (~2012) History of urinary incontinence (~1999) Kidney stones (~1985) GI bleeding (~2013) Colon polyps (~1996) Hypertension Cardiac arrhythmia Anxiety Lumbar spine pain Foot pain Chronic kidney disease (CKD) stage G3a/A1, moderately decreased glomerular filtration rate (GFR) between 45-59 mL/min/1.73 square meter and albuminuria creatinine ratio less than 30 mg/g (05/24/15) History of excision of epidermal inclusion cyst (05/09/14) Abdominal aortic aneurysm (AAA) without rupture (2004) Surgical History Status post prostatectomy (~1998) Anesthesia Lump of skin of back (~2014) Status post appendectomy Status post routine circumcision Status post tonsillectomy and adenoidectomy Family History Brother Cancer Brother Age: 83 Heart disease Hypertension Hyperlipidemia Brother Age: 81 Hypertension Hyperlipidemia Child Age: 61 Hypertension Child Age: 60 Hypertension Father Heart disease Mother Age: 103 Cancer Hypertension Hyperlipidemia Osteoporosis Social History household members: none Smoking Status: Former smoker Tobacco: How many years used: 25 alcohol intake: current substance use type: does not use Smoking Status: Former smoker alcohol intake frequency: 0-2 drinks per day Alcohol type: wine Substance Use Type: does not use Exam Initial Vital Signs Initial Vital Signs: Vital Signs Temperature 98.4 F 09/05/23 16:59 Pulse Rate 66 09/05/23 16:59 Respiratory Rate 22 09/05/23 16:59 Blood Pressure 143/86 H 09/05/23 16:59 Pulse Oximetry 97 09/05/23 16:59 Oxygen Delivery Method Room Air 09/05/23 16:59 Const General: cooperative, comfortable, well developed, well groomed, No acute distress and No diaphoretic HENMT Head: normal to inspection, normocephalic and atraumatic Nose: external nose normal and nares normal Face and sinus: normal facial exam Mouth: oral mucosae normal Eyes General: Yes appearance normal, both eyes and all related structures Neck Neck: normal visual inspection, full ROM, no meningeal signs, trachea midline, No midline deformity and No torticollis Chest Chest: normal inspection of the chest, normal palpation of entire chest wall and No tenderness Resp Effort & Inspection: normal respiratory effort and able to speak in complete sentences Auscultation: clear to auscultation bilaterally Cardio Rate: regular rate Rhythm: regular rhythm GI Inspection: normal to inspection Palpation: soft, No guarding, No hernia and No tender Other: Exam deferred Back/Spine/Pelvis Back: normal to inspection, back tenderness (No midline spinal tenderness, left- sided paraspinal thoracic tenderness), No crepitance, No CVA tenderness, No erythema and No warmth Skin General: no rashes or lesions noted (Left posterior shoulder black papule) Neuro General: patient alert, patient awake, moves all extremities and no focal motor deficits Extrem General: normal to inspection and full ROM (limited ROM of right upper extremity - baseline) Psych Appearance: grossly normal and well kempt Course Course Course Narrative: See MDM Orders Ordered: ED Orders 09/05/23 17:00 Complete Blood Count AUTO DIFF Stat Comprehensive Metabolic Panel Stat Lactate (Lactic Acid) Stat NT-proBNP (BNP-Adult 18+) Stat Prothrombin Time INR Stat Troponin I Stat EKG-12 Lead Stat 09/05/23 17:03 XR chest 1V Stat Measure peak expiratory flow ONCE RT Consult Eval and Treat NOW 09/05/23 18:30 Troponin I Stat Discontinued Medications Ketorolac Tromethamine (Ketorolac 30 Mg/Ml Vial) 15 mg IV NOW ONE Stop: 09/05/23 19:44 Last Admin: 09/05/23 19:49 Dose: 15 mg Documented By: SHANELL Lidocaine (Lidocaine 5% Patch) 1 each TOP NOW ONE Stop: 09/05/23 19:44 Last Admin: 09/05/23 19:49 Dose: 1 each Documented By: SHANELL Vital Signs Vital signs: Vital Signs - 8 hr 09/05/23 18:00 09/05/23 18:01 09/05/23 18:01 Pulse Rate 49 L 48 L Respiratory Rate 16 16 Blood Pressure 166/74 H Pulse Oximetry 98 99 09/05/23 18:30 09/05/23 18:31 09/05/23 18:31 Pulse Rate 52 L 50 L Respiratory Rate 12 19 Blood Pressure 175/81 H Pulse Oximetry 99 99 09/05/23 19:00 09/05/23 19:01 09/05/23 19:01 Pulse Rate 48 L 48 L Respiratory Rate 16 13 Blood Pressure 171/72 H Pulse Oximetry 97 96 09/05/23 19:30 09/05/23 19:30 09/05/23 19:48 Pulse Rate 49 L 53 L Respiratory Rate 14 17 Blood Pressure 187/79 H Pulse Oximetry 99 98 09/05/23 19:48 09/05/23 20:00 09/05/23 20:00 Pulse Rate 52 L Respiratory Rate 14 Blood Pressure 179/81 H 175/81 H Pulse Oximetry 98 09/05/23 20:30 09/05/23 20:31 09/05/23 20:31 Pulse Rate 51 L 52 L Respiratory Rate 20 15 Blood Pressure 172/79 H Pulse Oximetry 97 97 09/05/23 21:00 09/05/23 21:01 09/05/23 21:01 Pulse Rate 54 L 55 L Respiratory Rate 18 15 Blood Pressure 170/82 H Pulse Oximetry 97 97 MDM - Chest Pain Differential Diagnosis Differential diagnosis: Likely fracture of rib, pneumothorax, stable angina, unstable angina pectoris, atypical chest pain, st elevation myocardial infarction, costochondritis, chest pain and other (muscle strain) Lab Data Lab results narrative: Hypokalemia noted otherwise diagnostic laboratory testing within normal limits/non actionable. 09/05/23 17:00 09/05/23 17:00 Labs: Lab Results 09/05/23 09/05/23 Range/Units 17:00 18:30 WBC 10.6 (4.5-11.0) X10^3/uL RBC 4.56 (4.5-5.9) X10^6/uL Hgb 14.3 (13.5-17.5) g/dL Hct 42.0 (41-53) % MCV 92.1 (80-100) fL MCH 31.3 (26-34) PG MCHC 34.0 (30-36) % RDW 13.9 (11.6-14.8) % Plt Count 201 (150-400) X10^3/uL Neut % (Auto) 70.6 (50-75) % Lymph % (Auto) 17.0 L (25-40) % [place] % (Auto) 10.5 (3-14) % Eos % (Auto) 1.7 L (2-4) % Baso % (Auto) 0.2 (0-2) % Neut # (Auto) 7500 H (7671-5033) /uL Lymph # (Auto) 1800 (3607-5142) /uL [place] # (Auto) 1100 H (0-900) /uL Eos # (Auto) 200 (0-450) /uL Baso # (Auto) 0 (0-100) /uL PT 12.2 (9.4-12.5) SECONDS INR 1.1 (0.9-1.3) Sodium 138 (137-145) mmol/L Potassium 3.2 L (3.4-5.1) mmol/L Chloride 104 (98-107) mmol/L Carbon Dioxide 26 (22-32) mmol/L BUN 23 H (9-20) mg/dL Creatinine 1.04 (0.66-1.25) mg/dL Estimated GFR > 60 (>60) mL/min BUN/Creatinine Ratio 22.1 H (6-22) Glucose 87 (80-110) mg/dL Lactate 1.4 (0.7-2.1) mmol/L Calcium 9.9 (8.4-10.2) mg/dL Total Bilirubin 0.6 (0.2-1.3) mg/dL AST 26 (17-59) IU/L ALT 21 (<50) IU/L Alkaline Phosphatase 79 (38-126) U/L Troponin I < 0.012 0.022 (0.01-0.034) ng/mL NT-Pro-B Natriuret Pep 360 (<450) pg/mL Total Protein 7.6 (6.3-8.2) g/dL Albumin 4.2 (3.5-5.0) g/dL Globulin 3.4 (1.7-4.1) g/dL Albumin/Globulin Ratio 1.2 (1.0-2.8) MDM Narrative Medical decision making narrative: Patient presents with history of left sided paraspinal thoracic back pain for 2 weeks. Current vital signs are within normal limits/non-actionable. Troponin and repeat troponin and not suggestive of ACS. Patient is afebrile. Pulse oximetry 93-95% on room air, normal pulse oximetry. Epidermoid cyst noted on left posterior shoulder. Chest x-ray is not suggestive of pneumonia, pneumothorax, pleural effusion or mass. Diagnostic laboratory testing within normal limits/non actionable. The patient's clinical history is most suggestive muscle strain/muscle spasm most likely secondary to increased use of left upper extremity due to chronic pain of right shoulder that has been dominant for years. Lidocaine patch given along with Toradol and improvement in symptoms. Discussed management muscle strain with patient. Both PCP and physical therapy recommended as follow-up. Return precautions given. Patient discharged home in stable condition. Discharge Plan Departure Patient Disposition: Home Clinical Impression: Thoracic radiculopathy, Muscle strain, Epidermoid cyst Instructions: Muscle Strain, DI for Epidermal Cyst, DI for Thoracic Back Pain Prescriptions: New lidocaine [Lidoderm] 5 % adhesive patch,medicated 1 patch topical DAILY Qty: 30 0RF Rx Instructions: leave on most painful area for up to 12 hrs Continued loratadine [Claritin] 10 MG tablet 10 mg PO QDAYP Qty: 0 tamsulosin 0.4 mg capsule 0.4 mg PO DAILY Qty: 90 3RF atorvastatin 40 mg tablet See Rx Instructions .ROUTE .COMPLEX Qty: 90 1RF Dose Instruction: TAKE 1 TABLET BY MOUTH DAILY Rx Instructions: TAKE 1 TABLET BY MOUTH DAILY triamterene-hydrochlorothiazid 37.5-25 mg tablet 1 tab PO DAILY Qty: 90 0RF aspirin [Adult Aspirin Regimen] 81 mg tablet,delayed release (DR/EC) 81 mg PO DAILY hydralazine 50 mg tablet 50 mg PO TID cholecalciferol (vitamin D3) 25 mcg (1,000 unit) capsule 25 mcg PO DAILY multivitamin Tablet 1 tab PO DAILY irbesartan 75 mg tablet 75 mg PO DAILY Qty: 90 3RF metoprolol succinate 25 mg tablet extended release 24 hr 12.5 mg PO DAILY potassium chloride 10 mEq capsule, extended release 10 meq PO BID Referrals: Tanesha Hair DO [Primary Care Provider] - As soon as possible Stand Alone Forms: Patient Portal/API
[2023-09-05] MEDS: KETOROLAC 30 MG/ML VIAL 15 MG IV (19:49)
[2023-09-05] MEDS: LIDOCAINE 5% PATCH 1 EACH TOP (19:49)
== END 2023-09-05 21:10 | disposition home or self-care (01) ==
PROVIDERS: Emergency Medicine; Emergency Provider Emergency Medicine; Family Provider Internal Medicine Cardiovascular Disease; PCP Family Medicine
DX: M54.14 Radiculopathy, thoracic region (principal); S46.912A Strain of unspecified muscle, fascia and tendon at shoulder and upper arm level, left arm, initial encounter; L72.0 Epidermal cyst; X58.XXXA Exposure to other specified factors, initial encounter
CPT/HCPCS: 36415; 71045; 80053; 83605; 83880; 84484; 85025; 85610; 93005; 96374; 99284; J1885

== ENCOUNTER → 2023-09-25 08:44 | Outpatient (CLI) | payer MEDICARE, BC, SELFPAY ==
[2023-09-25 14:22] LABS: COVID-19 CEPHEID 4-PLEX PCR Negative (Negative); Influenza A - CEPHEID Flu A NEGATIVE (NEGATIVE); Influenza B - CEPHEID Flu B NEGATIVE (NEGATIVE); Respiratory Syncytial Virus POSITIVE (Negative)
== END ==
PROVIDERS: Family Provider Internal Medicine Cardiovascular Disease; PCP Family Medicine; Visit Provider Physician Assistant
DX: R05.1 Acute cough (principal)
CPT/HCPCS: 0241U

== ENCOUNTER → 2023-09-25 09:30 | Outpatient (CLI) | payer MEDICARE, BC, SELFPAY ==
--- NOTE | 2023-09-25 09:31 | DI.RAD.S_ITS ---
PROCEDURE: XR CHEST 2V INDICATIONS: cough w/ congestion x 3 weeks TECHNIQUE: 2 views of the chest were acquired. COMPARISON: [facility], CR, XR CHEST 1V, 09/05/2023, 17:00. FINDINGS: Surgical changes and devices: None. Lungs and pleura: Lungs are clear. No pleural effusions or pneumothorax. Mediastinum: Mediastinal contours are normal. Heart size is normal. Bones and chest wall: No suspicious bony abnormalities. Soft tissues appear unremarkable. IMPRESSION: No acute cardiopulmonary abnormality is seen. Dictated by: Angie Jorge M.D. on 09/25/2023 at 13:36 Approved by: Angie Jorge M.D. on 09/25/2023 at 13:36
== END ==
LOC: RAD 09:31
PROVIDERS: Family Provider Internal Medicine Cardiovascular Disease; PCP Family Medicine; Referring Provider Physician Assistant; Visit Provider Physician Assistant
DX: J06.9 Acute upper respiratory infection, unspecified (principal); R05.1 Acute cough
CPT/HCPCS: 0241U; 71046

== ENCOUNTER → 2023-11-20 10:36 | Outpatient (CLI) | payer MEDICARE, BC, SELFPAY ==
--- NOTE | 2023-11-20 10:37 | DI.RAD.S_ITS ---
PROCEDURE: XR CHEST 2V INDICATIONS: Right inferolateral rib pain TECHNIQUE: 2 views of the chest were acquired. COMPARISON: [facility], CR, XR CHEST 2V, 09/25/2023, 9:30. FINDINGS: Surgical changes and devices: None. Lungs and pleura: Lungs are clear. No pleural effusions or pneumothorax. Mediastinum: Mediastinal contours are normal. Heart size is within normal limits. Bones and chest wall: No suspicious bony abnormalities. Soft tissues appear unremarkable. IMPRESSION: No acute cardiopulmonary abnormality is seen. Dictated by: Oumar Jordan M.D. on 11/20/2023 at 16:38 Approved by: Oumar Jordan M.D. on 11/20/2023 at 16:40
== END ==
PROVIDERS: PCP Family Medicine; Referring Provider Anesthesiology; Visit Provider Anesthesiology
DX: R07.81 Pleurodynia (principal); M94.0 Chondrocostal junction syndrome [Tietze]; M47.26 Other spondylosis with radiculopathy, lumbar region; M79.18 Myalgia, other site; M25.511 Pain in right shoulder; G89.29 Other chronic pain
CPT/HCPCS: 71046; 99213

== ENCOUNTER → 2024-01-20 09:04 | Outpatient (CLI) | payer MEDICARE, BC, SELFPAY ==
[2024-01-20 10:31] LABS: HEMOLYSIS < 15 (0-50)
[2024-01-20 10:37] LABS: Blood Urea Nitrogen 20 mg/dL (9-20); Calcium 9.6 mg/dL (8.4-10.2); Carbon Dioxide 26 mmol/L (22-32); Chloride 106 mmol/L (98-107); Cholesterol 158 mg/dL (140-199); Estimated Glomerular Filt Rate > 60 mL/min (>60); Glucose 97 mg/dL (80-110); HDL Cholesterol 110 mg/dL (40-60); HEMOLYSIS < 15 (0-50); LDL Cholesterol Calculated 32 mg/dL (<100); Magnesium 2.2 mg/dL (1.6-2.3); Potassium 4.1 mmol/L (3.4-5.1); Sodium 139 mmol/L (137-145); Triglycerides 78 mg/dL (35-150)
[2024-01-20 10:39] LABS: Iron 99 ug/dL (49-181)
[2024-01-20 10:46] LABS: Percent Iron Saturation 36 % (20-50); Total Iron Binding Capacity 276 ug/dL (261-462); Transferrin 215 mg/dL (206-381)
[2024-01-20 11:07] LABS: TSH w/ Reflex to FT4 0.85 uIU/mL (0.47-4.68)
[2024-01-20 11:10] LABS: Ferritin 25 ng/mL (18-464)
== END ==
PROVIDERS: Family Medicine; PCP Family Medicine; Referring Provider Internal Medicine Cardiovascular Disease; Visit Provider Internal Medicine Cardiovascular Disease
DX: I10 Essential (primary) hypertension (principal); R53.83 Other fatigue; T50.B95A Adverse effect of other viral vaccines, initial encounter
CPT/HCPCS: 36415; 80048; 80061; 82728; 83540; 83550; 83735; 84443